=== PATIENT | female | born 1990 | race African-American/Black ===

== ENCOUNTER 2017-09-23 18:06 | Inpatient (IN) | payer OTHER ==
[2017-09-23] MEDS ORDERED: OXYTOCIN 30 UNIT/500 ML PREMIX 500 ML IV (18:30)
[2017-09-23] MEDS ORDERED: CITRIC ACID/SODIUM CITRATE 30 ML SOLUTION. PO (18:30)
[2017-09-23] MEDS ORDERED: ONDANSETRON PF 4 MG/2 ML VIAL. IV (18:30)
[2017-09-23] MEDS ORDERED: LIDOCAINE 1% PF 30 ML VIAL. INJ (18:30)
[2017-09-23] MEDS ORDERED: TERBUTALINE 1 MG/ML VIAL. SQ (18:30)
[2017-09-23] MEDS: IV RINGERS,LACTATED 1000ML 1,000 ML IV (19:30)
[2017-09-23 19:31] LABS: BILIRUBIN,URINE NEGATIVE (NEG); CLARITY,URINE CLEAR; COLOR,URINE YELLOW; GLUCOSE,URINE NEGATIVE (NEG); NITRITE,URINE NEGATIVE (NEG); PROTEIN,URINE NEGATIVE (NEG-TRACE); UROBILINOGEN,URINE 0.2 mg/dL (0.2 mg/dL)
[2017-09-23 19:38] LABS: BACTERIA,URINE MANY /HPF (0-FEW); RBC,URINE 0 /HPF (0-2); SQUAMOUS EPITHELIAL CELL,UR MANY /LPF
[2017-09-23] MEDS: DINOPROSTONE 10 MG SUPP.VAG VG (19:51)
[2017-09-23 21:01] LABS: HEMATOCRIT 39.8 % (36.0-47.0); HEMOGLOBIN 13.4 g/dL (12.0-15.5); MEAN CORPUSCULAR HEMOGLOBIN 33 pg (25-35); MEAN CORPUSCULAR HGB CONC 34 g/dL (31-37); MEAN CORPUSCULAR VOLUME 97 fL (79-100); PLATELET COUNT 159 x10^3/uL (140-400); RED BLOOD COUNT 4.12 x10^6/uL (3.50-5.40); RED CELL DISTRIBUTION WIDTH 13.7 % (11.5-14.5); WHITE BLOOD COUNT 6.6 x10^3/uL (4.0-11.0)
[2017-09-24] MEDS: ZOLPIDEM 5 MG TABLET. PO (02:19)
[2017-09-24] MEDS: IV RINGERS,LACTATED 1000ML 1,000 ML IV ×3 (05:00→20:50)
[2017-09-24] MEDS: 0.9 % SODIUM CHLORIDE 10 ML DISP.SYRIN. IV (05:00)
[2017-09-24] MEDS: BUTORPHANOL 2 MG/ML VIAL. IV ×2 (05:09→07:49)
[2017-09-24] MEDS: OXYTOCIN 30 UNIT/500 ML PREMIX 500 ML IV (06:03)
[2017-09-24] MEDS: fentaNYL PF VIAL 100 MCG/2 ML VIAL IV (09:48)
[2017-09-24] MEDS ORDERED: ROPIVacaine 0.2% IN 0.9%NACL PF 40 MG/20 ML DISP.SYRIN. ×2 (11:19→11:30)
[2017-09-24] MEDS ORDERED: L&D EPIDURAL 50 ML SYRINGE. EP (11:30)
[2017-09-24] MEDS ORDERED: L&D EPIDURAL SYRINGE 50 ML EP (11:33)
[2017-09-24] MEDS ORDERED: ceFAZolin 2GM PREMIX 2 GM/50 ML BAG IV (12:00)
[2017-09-24] MEDS: CITRIC ACID/SODIUM CITRATE 30 ML SOLUTION. PO (12:48)
[2017-09-24] MEDS ORDERED: MAG HYDROX/ALUMINUM HYD/SIMETH 30 ML ORAL.SUSP PO (13:00)
[2017-09-24] MEDS ORDERED: ZOLPIDEM 5 MG TABLET. PO (13:00)
[2017-09-24] MEDS ORDERED: 0.9 % SODIUM CHLORIDE 10 ML DISP.SYRIN. IV (13:00)
[2017-09-24] MEDS ORDERED: ONDANSETRON PF 4 MG/2 ML VIAL. IV (13:00)
[2017-09-24] MEDS ORDERED: diphenhydrAMINE ORAL ELIXIR 12.5 MG/5 ML ML PO (13:00)
[2017-09-24] MEDS ORDERED: MMR per PROTOCOL. MC (13:00)
[2017-09-24] MEDS ORDERED: MAGNESIUM HYDROXIDE 2,400 MG/30 ML ORAL.SUSP. PO (13:00)
[2017-09-24] MEDS ORDERED: OXYTOCIN 30 UNIT/500 ML PREMIX 500 ML IV (13:00)
[2017-09-24] MEDS ORDERED: SODIUM BICARB ADULT 8.4% 50 MEQ/50 ML DISP.SYRIN. (13:15)
[2017-09-24] MEDS ORDERED: LIDOCAINE 2% PF Vial for OR 5 ML VIAL. (13:15)
[2017-09-24] MEDS ORDERED: FAMOTIDINE 20 MG/2 ML VIAL (13:15)
[2017-09-24] MEDS ORDERED: ONDANSETRON PF 4 MG/2 ML VIAL. (13:15)
[2017-09-24] MEDS ORDERED: METOCLOPRAMIDE HCL 10 MG/2 ML VIAL. (13:15)
[2017-09-24] MEDS ORDERED: DEXAMETHASONE SOD PHOS 20 MG/5 ML VIAL. (13:15)
[2017-09-24] MEDS ORDERED: MORPHINE PF 5 MG/10 ML VIAL. (13:16)
[2017-09-24] MEDS ORDERED: OXYTOCIN 10 UNIT/ML VIAL. ×4 (13:32)
[2017-09-24] MEDS ORDERED: ceFAZolin SODIUM 1 GM in IV DEXTROSE 5% 50 ML IV (14:00)
[2017-09-24] MEDS: IBUPROFEN 800 MG TABLET. PO ×3 (14:00→23:30)
[2017-09-24] MEDS: KETOROLAC 30 MG/ML INJ. IV (16:59)
[2017-09-24] MEDS: FERROUS SULFATE 325 MG TABLET. PO (17:00)
[2017-09-24] MEDS: oxyCODONE/APAP 5/325 1 TAB TABLET PO ×2 (17:49→22:21)
[2017-09-24] MEDS: ceFAZolin SODIUM IV Push 1 GM VIAL. IVP (20:47)
[2017-09-24 23:15] LABS: RPR Non Reactive (Non Reactive)
[2017-09-25] MEDS: ceFAZolin SODIUM IV Push 1 GM VIAL. IVP ×2 (03:57→11:56)
[2017-09-25 04:26] LABS: ADD MAN DIFF? NO
[2017-09-25 04:38] LABS: BASO % 0 % (0-3); EOS % 0 % (0-3); HEMATOCRIT 33.9 % (36.0-47.0); HEMOGLOBIN 11.4 g/dL (12.0-15.5); LYMPH % 10 % (24-48); MEAN CORPUSCULAR HEMOGLOBIN 32 pg (25-35); MEAN CORPUSCULAR HGB CONC 34 g/dL (31-37); MEAN CORPUSCULAR VOLUME 95 fL (79-100); MONO % 9 % (0-9); NEUT # 8.3 x10^3uL (1.8-7.7); NEUT % 81 % (31-73); PLATELET COUNT 132 x10^3/uL (140-400); RED BLOOD COUNT 3.57 x10^6/uL (3.50-5.40); RED CELL DISTRIBUTION WIDTH 13.8 % (11.5-14.5); WHITE BLOOD COUNT 10.3 x10^3/uL (4.0-11.0)
[2017-09-25] MEDS: IBUPROFEN 800 MG TABLET. PO ×3 (06:37→20:32)
[2017-09-25] MEDS: oxyCODONE/APAP 5/325 1 TAB TABLET PO ×6 (06:39→23:18)
[2017-09-25] MEDS: FERROUS SULFATE 325 MG TABLET. PO ×2 (08:00→17:00)
[2017-09-25] MEDS: SIMETHICONE 80 MG TAB.CHEW PO ×2 (15:35→20:32)
[2017-09-25] MEDS: DOCUSATE SODIUM 100 MG CAPSULE. PO (20:32)
[2017-09-26] MEDS: oxyCODONE/APAP 5/325 1 TAB TABLET PO ×5 (04:36→20:45)
[2017-09-26] MEDS: IBUPROFEN 800 MG TABLET. PO ×3 (04:37→20:45)
[2017-09-26] MEDS: SIMETHICONE 80 MG TAB.CHEW PO (09:32)
[2017-09-26] MEDS: DOCUSATE SODIUM 100 MG CAPSULE. PO ×2 (09:32→20:45)
[2017-09-27] MEDS: IBUPROFEN 800 MG TABLET. PO ×2 (03:34→11:09)
[2017-09-27] MEDS: oxyCODONE/APAP 5/325 1 TAB TABLET PO ×3 (03:34→15:00)
[2017-09-27] MEDS: DOCUSATE SODIUM 100 MG CAPSULE. PO (07:41)
[2017-09-27] MEDS: SIMETHICONE 80 MG TAB.CHEW PO (07:44)
== END 2017-09-27 15:30 | disposition home or self-care (01) | DRG 765 ==
LOC: 3 SO LND 18:06 → 3 NORTH 09-24 17:16
PROC: 10D00Z1 Extraction of Products of Conception, Low, Open Approach (ICD-10-PCS; principal; 2017-09-24)
DX: O76 Abnormality in fetal heart rate and rhythm complicating labor and delivery (principal); O45.93 Premature separation of placenta, unspecified, third trimester; O61.9 Failed induction of labor, unspecified; Z37.0 Single live birth; Z3A.39 39 weeks gestation of pregnancy
CPT/HCPCS: 36415; 81001; 85025; 85027; 86593; 86850; 86900; 86901; 87086; 88307; J0690; J1100; J1885; J2270; J2405; J2590; J2765; J2795; J3010; J7120; S0028

== ENCOUNTER 2018-06-03 15:06 | Inpatient (IN) | payer OTHER ==
[~2018-06-03] VITALS: Ht 162.6 cm; Wt 60.3 kg
--- NOTE | 2018-06-03 15:41 | PHYS DOC ---
Past Medical History Past Medical History: Asthma Past Surgical History: No Surgical History Alcohol Use: None Drug Use: None Adult General Chief Complaint Chief Complaint: VAGINAL BLEEDING HPI HPI Patient is a 28 year old female presents to the ED complaining of vaginal bleeding over the last few weeks. States she has been following up with her ONCOLOGY ACCOUNT SPECIALIST (Aiden) but states the bleeding started coming out in clots this morning. Complains of lower abdominal cramping. Describes the pain as sharp/ cramping. Rates the pain as 8/10. Denies n/v, diarrhea, headache, vaginal discharge, STD exposure, dizziness, weakness, chest pain or shortness of breath. Review of Systems Review of Systems Constitutional: Denies fever or chills [] Eyes: Denies change in visual acuity, redness, or eye pain [] HENT: Denies nasal congestion or sore throat [] Respiratory: Denies cough or shortness of breath [] Cardiovascular: No additional information not addressed in HPI [] GI: Complains of abdominal pain. Denies nausea, vomiting, bloody stools or diarrhea [] : Complains of vaginal bleeding. Denies dysuria or hematuria [] Musculoskeletal: Denies back pain or joint pain [] Integument: Denies rash or skin lesions [] Neurologic: Denies headache, focal weakness or sensory changes [] All other systems were reviewed and found to be within normal limits, except as documented in this note. Current Medications Current Medications Current Medications Medications (Trade) Dose Ordered Sig/Brien Start Time Stop Time Status Last Admin Dose Admin Acetaminophen (Tylenol) 650 mg PRN Q4HRS PRN 06/03/18 19:00 06/04/18 13:19 DC Fentanyl Citrate (Fentanyl 2ml Vial) 50 mcg PRN Q1HR PRN 06/03/18 19:00 06/04/18 13:19 DC Methylergonovine Maleate (Methergine) 0.2 mg 1X ONCE 06/03/18 17:45 06/03/18 17:47 DC 06/03/18 18:19 0.2 MG Morphine Sulfate (Morphine Sulfate) 2 mg 1X ONCE 06/03/18 19:00 06/03/18 19:01 DC 06/03/18 19:00 2 MG Ondansetron HCl (Zofran Odt) 4 mg 1X ONCE 9/24/18 16:00 06/03/18 16:01 DC Ondansetron HCl (Zofran) 4 mg PRN Q8HRS PRN 06/03/18 19:00 06/04/18 13:19 DC Sodium Chloride 1,000 ml @ 1,000 mls/hr 1X ONCE 06/03/18 19:00 06/03/18 19:59 DC 06/03/18 19:05 1,000 MLS/HR Allergies Allergies Allergies Coded Allergies Type Severity Reaction Last Updated Verified No Known Drug Allergies 09/25/14 No Physical Exam Physical Exam Constitutional: Well developed, well nourished, no acute distress, non-toxic appearance. [] HENT: Normocephalic, atraumatic, bilateral external ears normal, oropharynx moist, no oral exudates, nose normal. [] Eyes: PERRLA, EOMI, conjunctiva normal, no discharge. [] Neck: Normal range of motion, no tenderness, supple, no stridor. [] Cardiovascular:Heart rate regular rhythm, no murmur [] Lungs & Thorax: Bilateral breath sounds clear to auscultation [] Abdomen: Bowel sounds normal, soft, diffuse lower abdominal tenderness, no masses, no pulsatile masses. [] : Refused. Skin: Warm, dry, no erythema, no rash. [] Back: No tenderness, no CVA tenderness. [] Extremities: No tenderness, no cyanosis, no clubbing, ROM intact, no edema. [] Neurologic: Alert and oriented X 3, normal motor function, normal sensory function, no focal deficits noted. [] Psychologic: Affect normal, judgement normal, mood normal. [] Current Patient Data Vital Signs Vital Signs Date Time Temp Pulse Resp B/P (MAP) Pulse Ox O2 Delivery O2 Flow Rate FiO2 06/03/18 19:50 88 116/70 (85) 98 Room Air 06/03/18 15:36 98.0 16 98.0 Lab Values Laboratory Tests Test 06/03/18 15:30 06/03/18 15:35 06/03/18 15:38 Urine Collection Type Unknown Urine Color Yellow Urine Clarity Clear Urine pH 6.5 Urine Specific [place] 1.025 Urine Protein Negative mg/dL (NEG-TRACE) Urine Glucose (UA) Negative mg/dL (NEG) Urine Ketones (Stick) Negative mg/dL (NEG) Urine Blood Trace (NEG) Urine Nitrite Negative (NEG) Urine Bilirubin Negative (NEG) Urine Urobilinogen Dipstick 1.0 mg/dL (0.2 mg/dL) Urine Leukocyte Esterase Negative (NEG) Urine RBC 1-2 /HPF (0-2) Urine WBC 0 /HPF (0-4) Urine Squamous Epithelial Cells Few /LPF Urine Bacteria Few /HPF (0-FEW) Urine Mucus Marked /LPF POC Urine HCG, Qualitative Hcg positive (Negative) White Blood Count 7.2 x10^3/uL (4.0-11.0) Red Blood Count 4.19 x10^6/uL (3.50-5.40) Hemoglobin 13.0 g/dL (12.0-15.5) Hematocrit 37.6 % (36.0-47.0) Mean Corpuscular Volume 90 fL (79-100) Mean Corpuscular Hemoglobin 31 pg (25-35) Mean Corpuscular Hemoglobin Concent 35 g/dL (31-37) Red Cell Distribution Width 14.7 % (11.5-14.5) H Platelet Count 258 x10^3/uL (140-400) Neutrophils (%) (Auto) 67 % (31-73) Lymphocytes (%) (Auto) 24 % (24-48) Monocytes (%) (Auto) 7 % (0-9) Eosinophils (%) (Auto) 1 % (0-3) Basophils (%) (Auto) 0 % (0-3) Neutrophils # (Auto) 4.8 x10^3uL (1.8-7.7) Lymphocytes # (Auto) 1.8 x10^3/uL (1.0-4.8) Monocytes # (Auto) 0.5 x10^3/uL (0.0-1.1) Eosinophils # (Auto) 0.1 x10^3/uL (0.0-0.7) Basophils # (Auto) 0.0 x10^3/uL (0.0-0.2) Maternal Serum HCG Beta Subunit 25400 mIU/mL (0-5) H Sodium Level 137 mmol/L (136-145) Potassium Level 3.8 mmol/L (3.5-5.1) Chloride Level 102 mmol/L (98-107) Carbon Dioxide Level 24 mmol/L (21-32) Anion Gap 11 (6-14) Blood Urea Nitrogen 7 mg/dL (7-20) Creatinine 0.6 mg/dL (0.6-1.0) Estimated GFR (Cockcroft-Gault) 146.2 BUN/Creatinine Ratio 12 (6-20) Glucose Level 103 mg/dL (70-99) H Calcium Level 9.0 mg/dL (8.5-10.1) Total Bilirubin 0.4 mg/dL (0.2-1.0) Aspartate Amino Transferase (AST) 20 U/L (15-37) Alanine Aminotransferase (ALT) 21 U/L (14-59) Alkaline Phosphatase 51 U/L (46-116) Total Protein 7.6 g/dL (6.4-8.2) Albumin 3.3 g/dL (3.4-5.0) L Albumin/Globulin Ratio 0.8 (1.0-1.7) L Laboratory Tests 06/03/18 15:38 Laboratory Tests 06/03/18 15:38 EKG EKG [] Radiology/Procedures Radiology/Procedures PROCEDURE: OB <14 WKS W/TV Obstetrical ultrasound, 06/03/2018: HISTORY: , vaginal bleeding Transabdominal and transvaginal scans were obtained. The uterus is enlarged. It contains a single gestational sac. The gestational sac contains a pole. It demonstrates a crown-rump length of 5.8 cm compatible with a gestational age of 12-13 weeks. The endocervical canal is dilated with the inferior aspect of the fetus extending into the endocervical canal. Initially with transabdominal scanning, faint heart motion was detected. At the end of the exam with transvaginal scanning there was no heart motion evident. The findings are those of demise with a spontaneous in progress. The ovaries were not visualized. No free fluid is evident in the pelvis. IMPRESSION: Nonviable 12 week IUP. []PROCEDURE: PREG 1ST TRIMESTER Exam performed: OB sonogram first semester. HISTORY: Patient had a OB ultrasound at 4:30 PM and facet the changes. This is a follow-up exam. DATE OF SERVICE: 05/31/2018 at 6:24 PM. Comparison made to a OB ultrasound from earlier today at 3:45 PM. TECHNIQUE: Transabdominal. The patient refused transvaginal scanning. FINDINGS: The uterus measures 14.0 x 8.8 x 7.1 cm. The endometrial stripe is thickened at approximately measures 30.8 mm. Previously seen intrauterine gestational sac containing a pole is no longer visualized corresponding to the given history.. There is normal vascularity and thickened endometrial stripe. The right ovary is not clearly seen. The left ovary measures 2.1 x 1.5 x 1.5 cm. No solid or cystic mass lesion is identified. No free fluid. IMPRESSION: Previously seen gestational sac and pole are no longer visualized consistent with a history of passing fetus. Thickened endometrial stripe without definite vascularity. Retained products is not considered likely, however short-term interval follow-up ultrasound and follow-up serial beta-hCG levels may be obtained Course & Med Decision Making Course & Med Decision Making Pertinent Labs and Imaging studies reviewed. (See chart for details) []Discussed case with Dr. Wolfe. Requests repeat US and to give Methergine. Repeat US shows No placenta or fetus. Patient passed fetus and POC in the room. Discussed findings with Dr. Wolfe. Will admit and further manage patient. Patients pain controlled at this time. Not passing clots. Requests methergine TID and analgesics for her pain. Patient stable for admission. Staff Physician Addendum: I was working in the ER during the course of this patient's visit. I was available for consultation as needed, but I was not directly involved in the care of this patient. Dragon Disclaimer Dragon Disclaimer This electronic medical record was generated, in whole or in part, using a voice recognition dictation system. Departure Departure Impression: Primary Impression: Complete miscarriage Disposition: ADMITTED INPATIENT Admitting Physician: Other (AIDEN) Condition: STABLE Referrals: HALEY WOLFE MD (PCP) BRISSA ANGEL Jun 03, 2018 15:41 BORIS CASSIDY MD Jun 05, 2018 06:28
[2018-06-03] MEDS ORDERED: ACETAMINOPHEN 325 MG TABLET. PO ONE (15:45)
[2018-06-03] MEDS ORDERED: ONDANSETRON PF 4 MG/2 ML VIAL. IV ONE ×2 (15:45→16:15)
[2018-06-03 15:55] LABS: BASO % 0 % (0-3); EOS # 0.1 x10^3/uL (0.0-0.7); EOS % 1 % (0-3); HEMATOCRIT 37.6 % (36.0-47.0); LYMPH # 1.8 x10^3/uL (1.0-4.8); LYMPH % 24 % (24-48); MEAN CORPUSCULAR HEMOGLOBIN 31 pg (25-35); MEAN CORPUSCULAR HGB CONC 35 g/dL (31-37); MEAN CORPUSCULAR VOLUME 90 fL (79-100); MONO # 0.5 x10^3/uL (0.0-1.1); MONO % 7 % (0-9); NEUT # 4.8 x10^3uL (1.8-7.7); NEUT % 67 % (31-73); PLATELET COUNT 258 x10^3/uL (140-400); RED BLOOD COUNT 4.19 x10^6/uL (3.50-5.40); RED CELL DISTRIBUTION WIDTH 14.7 % (11.5-14.5); WHITE BLOOD COUNT 7.2 x10^3/uL (4.0-11.0)
[2018-06-03] MEDS ORDERED: ONDANSETRON ODT 4 MG TAB.RAPDIS. PO ONE (16:00)
[2018-06-03 16:02] LABS: BILIRUBIN,URINE NEGATIVE (NEG); CLARITY,URINE CLEAR; COLOR,URINE YELLOW; NITRITE,URINE NEGATIVE (NEG); PH,URINE 6.5; PROTEIN,URINE NEGATIVE (NEG-TRACE)
[2018-06-03 16:05] LABS: CREATININE 0.6 mg/dL (0.6-1.0); GFR 146.2; POTASSIUM 3.8 mmol/L (3.5-5.1)
[2018-06-03 16:11] LABS: ALBUMIN 3.3 g/dL (3.4-5.0); ALBUMIN/GLOBULIN RATIO 0.8 (1.0-1.7); TOTAL BILIRUBIN 0.4 mg/dL (0.2-1.0); TOTAL PROTEIN 7.6 g/dL (6.4-8.2)
[2018-06-03 16:15] LABS: BACTERIA,URINE FEW /HPF (0-FEW); SQUAMOUS EPITHELIAL CELL,UR FEW /LPF; WBC,URINE 0 /HPF (0-4)
[2018-06-03] MEDS ORDERED: MORPHINE SULFATE 4 MG/ML VIAL. IV ONE (16:15)
--- NOTE | 2018-06-03 16:36 | RAD ---
Obstetrical ultrasound, 06/03/2018: HISTORY: , vaginal bleeding Transabdominal and transvaginal scans were obtained. The uterus is enlarged. It contains a single gestational sac. The gestational sac contains a pole. It demonstrates a crown-rump length of 5.8 cm compatible with a gestational age of 12-13 weeks. The endocervical canal is dilated with the inferior aspect of the fetus extending into the endocervical canal. Initially with transabdominal scanning, faint heart motion was detected. At the end of the exam with transvaginal scanning there was no heart motion evident. The findings are those of demise with a spontaneous in progress. The ovaries were not visualized. No free fluid is evident in the pelvis. IMPRESSION: Nonviable 12 week IUP. Electronically signed by: Marcus Thompson MD (06/03/2018 4:32 PM) [facility]
[2018-06-03] MEDS ORDERED: METHYLERGONOVINE MALEATE 0.2 MG/ML VIAL. IM ONE (17:45)
[2018-06-03] MEDS ORDERED: MORPHINE SULFATE 2 MG/ML VIAL. ONE (17:56)
[2018-06-03] MEDS ORDERED: MORPHINE SULFATE 2 MG/ML VIAL. IV ONE ×2 (18:00→19:00)
[2018-06-03] MEDS ORDERED: fentaNYL PF VIAL 100 MCG/2 ML VIAL IV PRN (19:00)
[2018-06-03] MEDS ORDERED: IV NORMAL SALINE 1000ML BAG 1,000 ML IV ONE (19:00)
[2018-06-03] MEDS ORDERED: ONDANSETRON PF 4 MG/2 ML VIAL. IV PRN (19:00)
[2018-06-03] MEDS ORDERED: ACETAMINOPHEN 325 MG TABLET. PO PRN (19:00)
--- NOTE | 2018-06-03 19:11 | RAD ---
Exam performed: OB sonogram first semester. HISTORY: Patient had a OB ultrasound at 4:30 PM and facet the changes. This is a follow-up exam. DATE OF SERVICE: 05/31/2018 at 6:24 PM. Comparison made to a OB ultrasound from earlier today at 3:45 PM. TECHNIQUE: Transabdominal. The patient refused transvaginal scanning. FINDINGS: The uterus measures 14.0 x 8.8 x 7.1 cm. The endometrial stripe is thickened at approximately measures 30.8 mm. Previously seen intrauterine gestational sac containing a pole is no longer visualized corresponding to the given history.. There is normal vascularity and thickened endometrial stripe. The right ovary is not clearly seen. The left ovary measures 2.1 x 1.5 x 1.5 cm. No solid or cystic mass lesion is identified. No free fluid. IMPRESSION: Previously seen gestational sac and pole are no longer visualized consistent with a history of passing fetus. Thickened endometrial stripe without definite vascularity. Retained products is not considered likely, however short-term interval follow-up ultrasound and follow-up serial beta-hCG levels may be obtained Electronically signed by: Toyin Beebe MD (06/03/2018 7:07 PM) [facility]
[2018-06-03] MEDS: METHYLERGONOVINE MALEATE 0.2 MG/ML VIAL. IM SCH (21:00)
[2018-06-03 21:10] VITALS: BP 128/83
[2018-06-04] MEDS: diphenhydrAMINE ORAL ELIXIR 12.5 MG/5 ML ML PO PRN ×2 (00:52→09:28)
[2018-06-04 01:35] VITALS: BP 103/67
[2018-06-04 05:30] VITALS: BP 93/55
[2018-06-04 05:54] LABS: BASO % 0 % (0-3); EOS # 0.1 x10^3/uL (0.0-0.7); EOS % 1 % (0-3); HEMATOCRIT 33.9 % (36.0-47.0); HEMOGLOBIN 11.8 g/dL (12.0-15.5); LYMPH # 2.3 x10^3/uL (1.0-4.8); LYMPH % 25 % (24-48); MEAN CORPUSCULAR HEMOGLOBIN 31 pg (25-35); MEAN CORPUSCULAR HGB CONC 35 g/dL (31-37); MEAN CORPUSCULAR VOLUME 90 fL (79-100); MONO # 0.5 x10^3/uL (0.0-1.1); MONO % 6 % (0-9); NEUT # 6.2 x10^3uL (1.8-7.7); NEUT % 68 % (31-73); PLATELET COUNT 235 x10^3/uL (140-400); RED BLOOD COUNT 3.76 x10^6/uL (3.50-5.40); RED CELL DISTRIBUTION WIDTH 14.9 % (11.5-14.5); WHITE BLOOD COUNT 9.2 x10^3/uL (4.0-11.0)
[2018-06-04 06:14] LABS: CALCIUM 9.1 mg/dL (8.5-10.1); CREATININE 0.5 mg/dL (0.6-1.0); GFR 180.5; POTASSIUM 3.5 mmol/L (3.5-5.1)
[2018-06-04] MEDS: METHYLERGONOVINE MALEATE 0.2 MG/ML VIAL. IM SCH (09:00)
[2018-06-04] MEDS ORDERED: IBUP200T44 PO ×2 (10:21→10:23)
[2018-06-04 11:00] VITALS: BP 104/61
== END 2018-06-04 11:00 | disposition home or self-care (01) | DRG 779 ==
LOC: ER 15:06 → 3 NORTH 20:19
PROVIDERS: ADMIT Specialist; ATTEND Specialist
DX: O03.9 Complete or unspecified spontaneous abortion without complication (principal); O99.511 Diseases of the respiratory system complicating pregnancy, first trimester; J45.909 Unspecified asthma, uncomplicated; Z3A.12 12 weeks gestation of pregnancy
CPT/HCPCS: 36415; 76801; 76817; 80048; 80053; 81001; 81025; 84702; 85025; 96361; 96372; 96374; J2210; J2270; J2405; J7030; 99285-25

== ENCOUNTER 2018-06-06 16:14 | Observation (INO) | payer OTHER ==
[~2018-06-06] VITALS: Ht 162.6 cm; Wt 58.5 kg
[~2018-06-06 16:14] MED LIST: IBUP200T44 PO
[2018-06-06] MEDS ORDERED: IV RINGERS,LACTATED 1000ML 1,000 ML IV SCH ×2 (16:45→17:03)
[2018-06-06] MEDS ORDERED: ONDANSETRON PF 4 MG/2 ML VIAL. ONE (17:07)
[2018-06-06] MEDS ORDERED: SEVOFLURANE UP TO 15 MINUTES. IH ONE (17:07)
[2018-06-06] MEDS ORDERED: PROPOFOL 20 ML IV ONE (17:07)
[2018-06-06] MEDS ORDERED: KETOROLAC 30 MG/ML INJ FOR OR. INJ ONE (17:07)
[2018-06-06] MEDS ORDERED: DEXAMETHASONE SOD PHOS 20 MG/5 ML VIAL. ONE (17:07)
[2018-06-06] MEDS ORDERED: MORPHINE SULFATE 2 MG/ML VIAL. IV PRN (17:15)
[2018-06-06] MEDS ORDERED: PROCHLORPERAZINE 10 MG/2 ML VIAL. IV PRN (17:15)
[2018-06-06] MEDS ORDERED: HYDROmorphone 2 MG/ML VIAL IV PRN (17:15)
[2018-06-06] MEDS ORDERED: fentaNYL PF VIAL 100 MCG/2 ML VIAL IV PRN ×2 (17:15)
[2018-06-06] MEDS ORDERED: ONDANSETRON PF 4 MG/2 ML VIAL. IV PRN ×2 (17:15→17:45)
[2018-06-06] MEDS ORDERED: LIDOCAINE 1% PF 2 ML VIAL. ID PRN (17:15)
[2018-06-06] MEDS ORDERED: OXYTOCIN 10 UNIT/ML VIAL. ONE (17:33)
[2018-06-06] MEDS ORDERED: ceFAZolin SODIUM 1 GM VIAL ONE (17:33)
[2018-06-06] MEDS ORDERED: oxyCODONE/APAP 5/325 1 TAB TABLET PO PRN ×2 (17:45)
[2018-06-06] MEDS ORDERED: METOCLOPRAMIDE HCL 10 MG/2 ML VIAL. IV PRN (17:45)
[2018-06-06] MEDS ORDERED: DEXTROSE 50% 25 GM / 50ML DISP.SYRIN. IV PRN (17:45)
[2018-06-06] MEDS ORDERED: MAG HYDROX/ALUMINUM HYD/SIMETH 30 ML ORAL.SUSP PO PRN (17:45)
[2018-06-06] MEDS ORDERED: 0.9 % SODIUM CHLORIDE 10 ML DISP.SYRIN. IV PRN (17:45)
[2018-06-06] MEDS ORDERED: diphenhydrAMINE HCL 25 MG CAPSULE PO PRN (17:45)
[2018-06-06] MEDS ORDERED: fentaNYL PF VIAL 100 MCG/2 ML VIAL ONE (17:53)
[2018-06-06] MEDS ORDERED: CLINDAMYCIN 900MG PREMIX 50 ML IV SCH ×2 (18:00→23:00)
--- NOTE | 2018-06-06 18:06 | OP ---
DATE OF SURGERY: 06/06/2018 PREOPERATIVE DIAGNOSIS: Incomplete . POSTOPERATIVE DIAGNOSES: 1. Incomplete . 2. Endometritis. PROCEDURE: Suction D and C. SURGEON: Rj Wolfe M.D. FLEXO FOLDER GLUER OPERATOR: None. ANESTHESIA: General. ESTIMATED BLOOD LOSS: 100 mL. FLUIDS: Crystalloids. FINDINGS: Approximately a 40-week size uterus, boggy with foul smelling discharge. SPECIMENS: Products of conception. COMPLICATIONS: None. CONDITION: Stable. DESCRIPTION OF PROCEDURE: Risks, benefits, indications, alternatives discussed in detail with the patient. The patient was brought to the OR theater, [facility] Under adequate general anesthesia, the patient prepped and draped in usual sterile manner. Posterior weighted speculum was placed in the vaginal vault. Cervix was grasped with single tooth tenaculum. Cervix was dilated using Zaragoza dilators to receive a #12 curved suction cannula. Gentle suction curettage was performed in all quadrants. A foul smelling discharge odor was noted. The suction curettage was done general until no further products of conception were seen going through the clear tubing. Sharp curettage was then performed in all quadrants. The uterine cry was heard. The suction cannula was once again placed. No further products of conception was noted and procedure was terminated. Single tooth tenaculum was removed. Puncture sites were hemostatic. Vaginal vault was wiped clean any membrane or tissue secondary to the foul smelling discharge, it was felt the patient should have overnight stay and was admitted for observation with IV antibiotics. RJ WOLFE MD DR: KACEY/dain JOB#: [id number] / [id number]
[2018-06-06 18:30] VITALS: BP 120/79
[2018-06-06 18:45] VITALS: BP 116/84
[2018-06-06 19:00] VITALS: BP 125/85
[2018-06-06 19:15] VITALS: BP 124/82
[2018-06-06 19:45] VITALS: BP 112/66
--- NOTE | 2018-06-10 16:10 | PATHOLOGY ---
[facility] Accession Number: [id number] . 01 Material submitted: . PRODUCTS OF CONCEPTION . 01 Clinician provided ICD-10: O02.1 . 01 Clinical history: . Missed . 02 Diagnosis: Uterine contents, suction D and C: - Products of conception, comprised of few immature chorionic villi and predominant segments of decidual tissue showing extensive hemorrhage, necrosis, and acute inflammation. . (JPM:mml; 06/10/18) [facility]/06/10/2018 . 02 Electronically signed: . Herb Julio MD, Pathologist NPI- [id number] . 01 Gross description: . The specimen is received in formalin, labeled "Sarah Middleton, products of conception", are multiple irregular fragments of dark brown clot measuring 8.0 x 5.0 x 1.7 cm in aggregate. No discrete spongy placental tissue, parts or grapelike cystic structures are present. Lofter tissue is submitted in A1-A3. ([facility]; 06/07/2018) [facility] . 02 Pathologist provided ICD-10: O02.1, O02.89 . 02 CPT . 338529 Specimen Comment: A courtesy copy of this report has been sent to Specimen Comment: [phone]. Specimen Comment: Report sent to Performed at: [facility] [address], [place] [id number] MD Gael Romero MD Phone: [phone] Performed at: [facility] [address] [place], [place] [id number] MD Herb Julio MD Phone: [phone]
== END 2018-06-06 20:45 | disposition home or self-care (01) ==
LOC: SURG 16:14 → 3 NORTH 18:21
PROVIDERS: ADMIT Specialist; ATTEND Specialist
DX: O03.4 Incomplete spontaneous abortion without complication (principal)
CPT/HCPCS: 59812; C1892; G0378; G0379; J0690; J1100; J1885; J2405; J2590; J2704; J3010; J3490; 88305

== ENCOUNTER 2020-01-19 18:55 | Emergency (ER) | payer OTHER ==
[~2020-01-19] VITALS: Ht 162.6 cm; Wt 63.6 kg
[2020-01-19] MEDS ORDERED: ONDANSETRON ODT 4 MG TAB.RAPDIS. PO ONE (19:15)
--- NOTE | 2020-01-19 19:16 | PHYS DOC ---
Past Medical History Past Medical History: Asthma Past Surgical History: No Surgical History, Smoking Status: Never Smoker Alcohol Use: None Drug Use: None General Adult EDM: Chief Complaint: ABDOMINAL PAIN IN HPI: HPI: Patient is a 29 year old female who presents with patient cannot remember when her last period was but she took 3 test in October and they were all positive. Patient was seen in Dr. Wolfe for OB but he is no longer practicing. Patient states she has not seen OB since. States yesterday she began having a lot of pressure in the low mid abdomen and some brown discharge with some nausea and vomiting. Patient denies fever, vaginal bleeding, chest pain, shortness of air, back pain, headache, dizziness, vision changes, numbness or tingling. She rates her pressure discomfort a 6 out of 10. She refuses any Tylenol but states that she will take some nausea medicine. Review of Systems: Review of Systems: GI: low abdominal pressure, nausea, vomiting, denies bloody stools or diarrhea. [] Heart Score: Risk Factors: Risk Factors: DM, Current or recent (<one month) smoker, HTN, HLP, family history of CAD, obesity. Risk Scores: Score 0 - 3: 2.5% MACE over next 6 weeks - Discharge Home Score 4 - 6: 20.3% MACE over next 6 weeks - Admit for Clinical Observation Score 7 - 10: 72.7% MACE over next 6 weeks - Early Invasive Strategies Allergies: Allergies: Allergies Coded Allergies Type Severity Reaction Last Updated Verified No Known Drug Allergies 06/06/18 No Physical Exam: PE: Constitutional: Well developed, well nourished, no acute distress, non-toxic appearance. [] HENT: Normocephalic, atraumatic, bilateral external ears normal, oropharynx moist, no oral exudates, nose normal. [] Eyes: PERRLA, EOMI, conjunctiva normal, no discharge. [] Neck: Normal range of motion, no tenderness, supple, no stridor. [] Cardiovascular:Heart rate regular rhythm, no murmur [] Lungs & Thorax: Bilateral breath sounds clear to auscultation [] Abdomen: Bowel sounds normal, soft, no tenderness, no masses, no pulsatile masses. [] Skin: Warm, dry, no erythema, no rash. [] Back: No tenderness, no CVA tenderness. [] Extremities: No tenderness, no cyanosis, no clubbing, ROM intact, no edema. [] Neurologic: Alert and oriented X 3, normal motor function, normal sensory function, no focal deficits noted. [] Psychologic: Affect normal, judgement normal, mood normal. Normal Physical Exam [] EKG: EKG: [] Radiology/Procedures: Radiology/Procedures: [] Impression: [facility] [address] [place] [address] IMAGING REPORT Signed PATIENT: ALEJANDRO AGUSTIN MACCOUNT: [id number] : 1990 LOCATION: ER AGE: 29 SEX: F EXAM STATUS: REG ER ORD. PHYSICIAN: SEJAL OSEGUERA APRN REASON: ABDOMINAL PAIN IN PROCEDURE: OB < 14 WKS Obstetric ultrasound less than 14 weeks HISTORY: Abdominal pain and . TECHNIQUE: Transabdominal transducer was utilized. FINDINGS: Uterus measures 11.1 x 8.3 x 2.8 cm. There is a single intrauterine gestational sac with a normal shape and normal volume of amniotic fluid. There is a single pole crown-rump length 1.4 cm with estimated sonographic gestational age of 7 weeks 5 days and date of delivery September 01, 2020. cardiac activity with heart rate of 158 bpm documented. Yolk sac diameter 5 mm. No subchorionic hemorrhage. Maternal cervix is subjectively normal, the length was not documented. Right ovary measures 3.3 x 2.4 x 3.0 cm with a corpus luteum. Left ovary measures 3.1 x 1.7 x 2.3 cm. There is intact bilateral ovarian blood flow. No pelvic fluid. IMPRESSION: Single living intrauterine with estimated sonographic gestational age of 7 weeks 5 days as described above. Electronically signed by: Ed Kay MD (01/19/2020 8:03 PM) [facility] DICTATED and SIGNED BY: ED KAY MD DATE: 01/19/202002 Course & Med Decision Making: Course & Med Decision Making Pertinent Labs and Imaging studies reviewed. (See chart for details) Abdomen soft and nontender. Alert and oriented. Speaks in full clear sentences. Ambulatory to steady gait. No extremity swelling. Skin pink warm and dry. Vital signs within normal limits. Patient states she does not want to be treated prophylactically today for sexually transmitted diseases. She states she will wait the 48 hours to see if she comes back positive. Patient's urine shows no infection but shows that she is dehydrated. She will get a liter of fluids in the ED. I will send her home with a referral to Dr. Hidalgo and [facility]. Pelvic Exam: Magnetic Grinder Operator present Abdomen: Nontender External Genitalia: Normal Skin Speculum: Normal vaginal mucosa, white cervical discharge Bimanual: No adnexal masses or tenderness, No CMT [] Dragon Disclaimer: Dragon Disclaimer: This electronic medical record was generated, in whole or in part, using a voice recognition dictation system. Departure Departure Impression: Primary Impression: Abdominal pain affecting Additional Impressions: Nausea and vomiting during Bacterial vaginosis in Disposition: HOME, SELF-CARE Condition: STABLE Referrals: NO PCP (PCP) Patient Instructions: Abdominal Pain During , Bacterial Vaginosis, [id number] Additional Instructions: Begin taking vitamins with food. Drink plenty of fluids. Take medications only as prescribed. Follow-up with Dr Hidalgo as soon as possible. Scripts Metronidazole (METRONIDAZOLE) 500 Mg Tablet 1 TAB PO BID for 7 Days, #14 TAB 0 Refills Prov: SEJAL OSEGUERA APRN 01/19/20 Ondansetron (ONDANSETRON ODT) 4 Mg Tab.rapdis 1 TAB PO PRN Q6-8HRS, #20 TAB Prov: SEJAL OSEGUERA APRN 01/19/20 SEJAL OSEGUERA APRN January 19, 2020 19:16
[2020-01-19 19:19] LABS: CLARITY,URINE CLEAR
[2020-01-19 19:20] LABS: BILIRUBIN,URINE NEGATIVE (NEG); COLOR,URINE YELLOW; NITRITE,URINE NEGATIVE (NEG); PROTEIN,URINE NEGATIVE (NEG-TRACE); UROBILINOGEN,URINE 0.2 mg/dL (0.2 mg/dL)
[2020-01-19 19:23] LABS: BACTERIA,URINE FEW /HPF (0-FEW); RBC,URINE 0 /HPF (0-2); SQUAMOUS EPITHELIAL CELL,UR MOD /LPF; WBC,URINE OCC /HPF (0-4)
[2020-01-19 19:35] LABS: BASO % 0 % (0-3); EOS # 0.1 x10^3/uL (0.0-0.7); EOS % 2 % (0-3); HEMATOCRIT 38.6 % (36.0-47.0); HEMOGLOBIN 12.8 g/dL (12.0-15.5); LYMPH # 1.8 x10^3/uL (1.0-4.8); LYMPH % 34 % (24-48); MEAN CORPUSCULAR HEMOGLOBIN 28 pg (25-35); MEAN CORPUSCULAR HGB CONC 33 g/dL (31-37); MEAN CORPUSCULAR VOLUME 85 fL (79-100); MONO # 0.4 x10^3/uL (0.0-1.1); MONO % 7 % (0-9); NEUT # 2.9 x10^3/uL (1.8-7.7); NEUT % 57 % (31-73); PLATELET COUNT 261 x10^3/uL (140-400); RED BLOOD COUNT 4.52 x10^6/uL (3.50-5.40); RED CELL DISTRIBUTION WIDTH 17.6 % (11.5-14.5); WHITE BLOOD COUNT 5.2 x10^3/uL (4.0-11.0)
[2020-01-19 19:41] LABS: CALCIUM 9.2 mg/dL (8.5-10.1); CREATININE 0.7 mg/dL (0.6-1.0); GFR 121.5; POTASSIUM 3.3 mmol/L (3.5-5.1)
[2020-01-19 19:46] LABS: ALBUMIN 3.7 g/dL (3.4-5.0); ALBUMIN/GLOBULIN RATIO 0.9 (1.0-1.7); TOTAL BILIRUBIN 0.3 mg/dL (0.2-1.0); TOTAL PROTEIN 7.7 g/dL (6.4-8.2)
[2020-01-19] MEDS ORDERED: IV NORMAL SALINE 1000ML BAG 1,000 ML IV ONE (20:00)
--- NOTE | 2020-01-19 20:06 | RAD ---
Obstetric ultrasound less than 14 weeks HISTORY: Abdominal pain and . TECHNIQUE: Transabdominal transducer was utilized. FINDINGS: Uterus measures 11.1 x 8.3 x 2.8 cm. There is a single intrauterine gestational sac with a normal shape and normal volume of amniotic fluid. There is a single pole crown-rump length 1.4 cm with estimated sonographic gestational age of 7 weeks 5 days and date of delivery September 01, 2020. cardiac activity with heart rate of 158 bpm documented. Yolk sac diameter 5 mm. No subchorionic hemorrhage. Maternal cervix is subjectively normal, the length was not documented. Right ovary measures 3.3 x 2.4 x 3.0 cm with a corpus luteum. Left ovary measures 3.1 x 1.7 x 2.3 cm. There is intact bilateral ovarian blood flow. No pelvic fluid. IMPRESSION: Single living intrauterine with estimated sonographic gestational age of 7 weeks 5 days as described above. Electronically signed by: Ed Kay MD (01/19/2020 8:03 PM) [facility]
[2020-01-19] MEDS ORDERED: ONDA4TAB12 PO (20:18)
[2020-01-19] MEDS ORDERED: METR-34 PO (20:24)
[2020-01-19 21:00] VITALS: BP 108/69
[2020-01-21 16:10] LABS: GC PROBE Negative (Negative)
== END 2020-01-19 21:21 | disposition home or self-care (01) ==
LOC: ER 18:55
DX: O23.591 Infection of other part of genital tract in pregnancy, first trimester (principal); O21.9 Vomiting of pregnancy, unspecified; R10.30 Lower abdominal pain, unspecified; J45.909 Unspecified asthma, uncomplicated; Z98.890 Other specified postprocedural states; Z3A.01 Less than 8 weeks gestation of pregnancy
CPT/HCPCS: 36415; 76801; 80053; 81001; 81025; 83690; 84702; 85025; 87491; 87591; 96360; 99284; J7030; Q0111; Q0162

== ENCOUNTER 2020-03-08 23:58 | Emergency (ER) | payer OTHER ==
[~2020-03-08] VITALS: Ht 162.6 cm; Wt 62.7 kg
[~2020-03-08 23:58] MED LIST changes: +METR-34 PO; +ONDA4TAB12 PO
--- NOTE | 2020-03-09 01:19 | PHYS DOC ---
Past Medical History Past Medical History: No Pertinent History, Asthma Past Surgical History: No Surgical History, , Other Additional Past Surgical Histo: DNC(2018) Smoking Status: Never Smoker Alcohol Use: None Drug Use: None General Adult EDM: Chief Complaint: MECHANICAL FALL HPI: HPI: Patient is a 29 year old female who is 14 weeks presents for evaluation after slip and fall downstairs. Patient complains of left shoulder pain left rib pain and lower pelvic pain. Patient denies hitting her head there is no loss of consciousness. Patient has not had any nausea or vomiting. Patient denies any vaginal bleeding or vaginal discharge. heart tones obtained 160 bpm. Review of Systems: Review of Systems: Constitutional: Denies fever or chills. [] Eyes: Denies change in visual acuity. [] HENT: Denies nasal congestion or sore throat. [] Respiratory: Denies cough or shortness of breath. [] Cardiovascular: Denies chest pain or edema. [] GI: Denies abdominal pain, nausea, vomiting, bloody stools or diarrhea. [] : Denies dysuria. [] Musculoskeletal: Denies back pain or joint pain. [] Integument: Denies rash. [] Neurologic: Denies headache, focal weakness or sensory changes. [] Endocrine: Denies polyuria or polydipsia. [] Lymphatic: Denies swollen glands. [] Psychiatric: Denies depression or anxiety. [] Heart Score: Risk Factors: Risk Factors: DM, Current or recent (<one month) smoker, HTN, HLP, family history of CAD, obesity. Risk Scores: Score 0 - 3: 2.5% MACE over next 6 weeks - Discharge Home Score 4 - 6: 20.3% MACE over next 6 weeks - Admit for Clinical Observation Score 7 - 10: 72.7% MACE over next 6 weeks - Early Invasive Strategies Allergies: Allergies: Allergies Coded Allergies Type Severity Reaction Last Updated Verified No Known Drug Allergies 06/06/18 No Physical Exam: PE: Constitutional: Well developed, well nourished, no acute distress, non-toxic appearance. [] HENT: Normocephalic, atraumatic, bilateral external ears normal, oropharynx moist, no oral exudates, nose normal. [] Eyes: PERRLA, EOMI, conjunctiva normal, no discharge. [] Neck: Normal range of motion, no tenderness, supple, no stridor. [] Cardiovascular:Heart rate regular rhythm, no murmur [left wall chest tenderness no crepitus] Lungs & Thorax: No respiratory distress Abdomen: Bowel sounds normal, soft, gravid abdomen tender to palpation lower pelvis no rebound or guarding Skin: Warm, dry, no erythema, no rash. [] Back: No tenderness, no CVA tenderness. [] Extremities: No tenderness, no cyanosis, no clubbing, ROM intact, no edema. [Pain with range of motion left shoulder] Neurologic: Alert and oriented X 3, normal motor function, normal sensory function, no focal deficits noted. [] Psychologic: Affect normal, judgement normal, mood normal. [] Current Patient Data: Vital Signs: Vital Signs Date Time Temp Pulse Resp B/P (MAP) Pulse Ox O2 Delivery O2 Flow Rate FiO2 03/09/20 00:08 98.9 89 20 119/73 (88) 99 Room Air 98.9 EKG: EKG: [] Radiology/Procedures: Radiology/Procedures: [] Course & Med Decision Making: Course & Med Decision Making Pertinent Labs and Imaging studies reviewed. (See chart for details) [] heart tones obtained 166 bpm. Ultrasound performed IUP well-child no acute abnormalities Dragon Disclaimer: Dragtashi Disclaimer: This electronic medical record was generated, in whole or in part, using a voice recognition dictation system. Departure Departure Impression: Primary Impression: Fall (on) (from) other stairs and steps, initial encounter Additional Impression: Referrals: NO PCP (PCP) Patient Instructions: Abdominal Pain During , Contusion, Fall Prevention and Home Safety Justicifation of Admission Dx: Justifications for Admission: Justification of Admission Dx: N/A NEAL VELAZQUEZ DO Mar 09, 2020 01:19
[2020-03-09 01:38] VITALS: BP 99/54
--- NOTE | 2020-03-09 01:39 | RAD ---
Obstetrical ultrasound limited. HISTORY: Fall down stairs, Ultrasound showed a intrauterine . Placenta was anterior without previa. survey was not performed. Fetus was in transverse position. There is a normal amount of amniotic fluid. Maternal ovaries were not identified. Heart beat was noted with a rate of 171 bpm. Measurements were obtained including biparietal diameter of 3 cm corresponding to 15 weeks 4 days, head circumference of 11.5 cm corresponding to 15 weeks 4 days, abdominal circumference 19.4 cm corresponding to 15 weeks 4 days, femur length 1.7 cm corresponding to 14 weeks 6 days. Estimated gestational age by ultrasound 15 weeks 3 days with an estimated date of delivery of August 28, 2020. Electronically signed by: Puma Luther MD (03/09/2020 1:36 AM) [id number]
[2020-03-09] MEDS ORDERED: ACETAMINOPHEN 500 MG TABLET PO ONE (01:45)
== END 2020-03-09 01:46 | disposition home or self-care (01) ==
LOC: ER 23:58
DX: O26.891 Other specified pregnancy related conditions, first trimester (principal); G89.11 Acute pain due to trauma; M25.512 Pain in left shoulder; R07.81 Pleurodynia; R10.2 Pelvic and perineal pain; J45.909 Unspecified asthma, uncomplicated; Z98.890 Other specified postprocedural states; W10.8XXA Fall (on) (from) other stairs and steps, initial encounter; Y93.89 Activity, other specified; Y92.89 Other specified places as the place of occurrence of the external cause; Y99.8 Other external cause status; Z3A.14 14 weeks gestation of pregnancy
CPT/HCPCS: 76815; 99284

== ENCOUNTER → 2020-04-14 | Outpatient (CLI) | payer OTHER ==
--- NOTE | 2020-04-14 16:42 | RAD ---
Clinical indications: High risk . Estimated weight and anatomy scan. COMPARISON: March 09, 2020. Findings: A single intrauterine fetus is seen in cephalic position. heart rate is 145 beats per minute. BPD is 4.71 cm which equals 20 weeks 2 days. HC is 17.53 cm which equals 20 weeks 0 days. AC is 15.1 cm which equals 20 weeks 2 days. FL is 3.27 cm which equals 20 weeks 1 day. Average gestational age by ultrasound is 20 weeks 1 day +/- 12 days with an EDC of August 31, 2020. There has been normal interval growth from the previous study. Estimated weight is 0 lbs and 12 oz. A four-chamber heart and three-vessel cord are identified. stomach and urinary bladder are identified. kidneys are unremarkable. Cord insertion site is unremarkable. The intracranial structures and spine are morphologically normal in appearance. The ventricular trigone measurement is 5.4 mm. Cisterna magna measurement is 3.7 mm. Four extremities are identified.. The nasal labial area is normal. STEPHON using the four quadrant method is 11.9 cm. Cervical length is 4.3 cm. A grade 1 anterior placenta is seen. No placenta previa and no placenta abruptio is identified. The maternal ovaries are not visualized. Impression: Single IUP in cephalic presentation with gestational age of 20 weeks 1 day. Electronically signed by: Mikel Maldonado MD (04/14/2020 4:39 PM) [id number]
== END | disposition home or self-care (01) ==
LOC: US 10:46
PROVIDERS: ATTEND Obstetrics & Gynecology
DX: O09.90 Supervision of high risk pregnancy, unspecified, unspecified trimester (principal); Z3A.20 20 weeks gestation of pregnancy
CPT/HCPCS: 76805

== ENCOUNTER 2020-07-11 12:33 | Observation (INO) | payer OTHER ==
[2020-07-11] MEDS ORDERED: IV RINGERS,LACTATED 1000ML 1,000 ML IV SCH (13:22)
[2020-07-11 13:48] LABS: BILIRUBIN,URINE NEGATIVE (NEG); CLARITY,URINE CLEAR; COLOR,URINE YELLOW; NITRITE,URINE NEGATIVE (NEG); PROTEIN,URINE NEGATIVE (NEG-TRACE); UROBILINOGEN,URINE 0.2 mg/dL (0.2 mg/dL)
[2020-07-11 14:01] LABS: BACTERIA,URINE MODERATE /HPF (0-FEW); RBC,URINE OCC /HPF (0-2); WBC,URINE OCC /HPF (0-4)
== END 2020-07-11 15:40 | disposition home or self-care (01) ==
LOC: 3 SO LND 12:33
PROVIDERS: ADMIT Obstetrics & Gynecology; ATTEND Obstetrics & Gynecology
DX: O99.891 Other specified diseases and conditions complicating pregnancy (principal); O26.893 Other specified pregnancy related conditions, third trimester; R10.2 Pelvic and perineal pain; O62.9 Abnormality of forces of labor, unspecified; N89.8 Other specified noninflammatory disorders of vagina; Z3A.32 32 weeks gestation of pregnancy
CPT/HCPCS: 59025; 81001; 87086; 96360; 96361; G0378; G0379; J7120

== ENCOUNTER → 2020-11-24 | Outpatient (CLI) | payer OTHER ==
[2020-09-01 11:15] VITALS: BP 115/70
[~2020-11-24] MED LIST changes: +DOCU-109 PO; +IBUP-1060 PO; +OXYC1TAB15 PO; +PNV1TABL25 PO
== END ==
LOC: SPEC 15:35
PROVIDERS: ATTEND Obstetrics & Gynecology
DX: Z01.411 Encounter for gynecological examination (general) (routine) with abnormal findings (principal)
CPT/HCPCS: Q0111

== ENCOUNTER → 2020-12-15 | Outpatient (CLI) | payer OTHER ==
[2020-09-01 11:15] VITALS: BP 115/70
== END ==
LOC: SPEC 15:25
PROVIDERS: ATTEND Obstetrics & Gynecology
DX: N76.0 Acute vaginitis (principal); N77.1 Vaginitis, vulvitis and vulvovaginitis in diseases classified elsewhere
CPT/HCPCS: Q0111

== ENCOUNTER 2021-02-16 20:05 | Emergency (ER) | payer OTHER ==
[~2021-02-16] VITALS: Ht 162.6 cm; Wt 71.6 kg
--- NOTE | 2021-02-16 21:00 | RAD ---
Exam: CT head, maxillofacial and cervical spine INDICATION: Closed head injury, left eye pain, neck pain TECHNIQUE: Sequential axial images through the head, face and cervical spine were obtained without th e administration of IV contrast. Exposure: One or more of the following in the visualized dose reduction techniques were utilized for this examination: 1. Automated exposure control 2. Adjustment of the MA and/or KV according to patient size 3. Use of iterative of reconstructive technique Comparisons: None FINDINGS: Head: No focal parenchymal lesion or hemorrhage is identified. There is no midline shift or sulcal effaceme nt. No acute vascular territory infarction is identified. Banks-white distinction is preserved. The ventricular system is within normal limits without compression hydrocephalus. The basal cisterns are well maintained. Face: The visualized portions of the paranasal sinuses and mastoid air cells are well-pneumatized. No acute fractures. Globes and intraorbital contents are normal. Cervical spine: Straightening of cervical spine which may positional. Vertebral body heights are well-maintained. Fracture to the cervical spine is not identified. No significant spondylotic change in cervical spine. Visualized paraspinal soft tissues are unremarkable. IMPRESSION: 1. No acute intracranial abnormality. 2. No acute traumatic injury identified at the face. 3. Negative CT C-spine for acute traumatic injury. Electronically signed by: Isael Mata MD (02/16/2021 8:57 PM) [facility]ON[facility]
[2021-02-16] MEDS ORDERED: KETOROLAC 30 MG/ML VIAL. IM ONE (21:15)
[2021-02-16] MEDS ORDERED: KETOROLAC 30 MG/ML VIAL. IVP ONE (21:15)
--- NOTE | 2021-02-16 23:43 | RAD ---
XR HIP (WITH OR WITHOUT PELVIS) 1 VIEW, XR LUMBAR SPINE 2-3V History: Reason: pain / Spl. Instructions: / History: Technique: 3 views lumbar spine, AP view the pelvis and additional views of the hips. Comparison: None. Findings: Lumbar spine: Normal vertebral body height and alignment. No fracture. Disc spaces are well-maintaine d. Hips and pelvis: Normal alignment. No fracture. Impression: 1. No acute osseous abnormality. Electronically signed by: Rajesh Pimentel DO (02/16/2021 11:40 PM) [facility]
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
[2021-02-16] MEDS ORDERED: METH-561 PO (23:54)
[2021-02-16 23:57] VITALS: BP 90/59
== END 2021-02-17 | disposition home or self-care (01) ==
LOC: ER 20:05
DX: S00.12XA Contusion of left eyelid and periocular area, initial encounter (principal); S09.90XA Unspecified injury of head, initial encounter; M54.2 Cervicalgia; J45.909 Unspecified asthma, uncomplicated; V49.59XA Passenger injured in collision with other motor vehicles in traffic accident, initial encounter; Y93.89 Activity, other specified; Y92.488 Other paved roadways as the place of occurrence of the external cause; Y99.8 Other external cause status
CPT/HCPCS: 70450; 70486; 72100; 72125; 73521; 81025; 96372; 99285; J1885

== ENCOUNTER → 2021-05-04 | Outpatient (CLI) | payer OTHER ==
[~2021-05-04] MED LIST changes: +METH-561 PO
== END ==
LOC: SPEC 11:49
PROVIDERS: ATTEND Obstetrics & Gynecology
DX: N89.8 Other specified noninflammatory disorders of vagina (principal)
CPT/HCPCS: Q0111

== ENCOUNTER → 2021-05-31 | Outpatient (CLI) | payer OTHER | LOC: SPEC 12:17 | PROVIDERS: ATTEND Obstetrics & Gynecology | DX: N89.8 Other specified noninflammatory disorders of vagina (principal) | CPT/HCPCS: Q0111 ==

== ENCOUNTER → 2021-06-20 | Outpatient (CLI) | payer OTHER | LOC: LAB 11:54 | PROVIDERS: ATTEND Obstetrics & Gynecology | DX: Z32.01 Encounter for pregnancy test, result positive (principal) | CPT/HCPCS: 36415; 84702 ==

== ENCOUNTER → 2021-06-22 | Outpatient (CLI) | payer OTHER | LOC: LAB 16:03 | PROVIDERS: ATTEND Obstetrics & Gynecology | DX: Z32.01 Encounter for pregnancy test, result positive (principal) | CPT/HCPCS: 36415; 84702 ==

== ENCOUNTER → 2021-06-27 | Outpatient (CLI) | payer OTHER | LOC: LAB 13:47 | PROVIDERS: ATTEND Obstetrics & Gynecology | DX: Z34.91 Encounter for supervision of normal pregnancy, unspecified, first trimester (principal) | CPT/HCPCS: 36415; 84702 ==

== ENCOUNTER → 2021-06-28 | Outpatient (CLI) | payer OTHER ==
--- NOTE | 2021-06-28 12:34 | RAD ---
US OB <14 WKS +TV History: No heart tones Comparison: None. Technique: Sonographic examination of the pelvis was performed with transabdominal and transvaginal t echnique. Findings: Uterus- Uterine parenchyma: Homogeneous without fibroids. Uterine measurements: 9.8 x 6.4 x 8.4 cm Cervix: Unremarkable. Endometrium- Endometrial Stripe: No gestational sac is identified. No abnormal fluid collections in the endometria l cavity, no obvious mass, and no abnormal blood flow within the endometrium by Doppler. Thickness: 2.0 cm. Adnexa- Right Ovary: Identified and appears normal. Size: 3.1 x 1.4 x 1.9 cm Doppler: Normal. Left Ovary: Identified and appears normal. Size: 2.4 x 1.8 x 1.7 cm Doppler: Normal. Mass: No abnormal adnexal masses. Fluid: Small free fluid in the cul-de-sac. Additional findings: None. Impression: Thickened endometrium without gestational sac identified. No intrauterine gestation or ectopic pregna ncy identified. This is consistent with a of unknown location. Differential includes early intrauterine , occult ectopic or failed early . Recommend close follow-up with beta hCG testing and repeat ultrasound if indicated. Electronically signed by: Marvin Salguero MD (06/28/2021 12:32 PM) [id number]
== END ==
LOC: US 11:01
PROVIDERS: ATTEND Obstetrics & Gynecology
DX: R93.89 Abnormal findings on diagnostic imaging of other specified body structures (principal)
CPT/HCPCS: 76801; 76817

== ENCOUNTER → 2021-07-06 | Outpatient (CLI) | payer OTHER | LOC: LAB 11:16 | PROVIDERS: ATTEND Obstetrics & Gynecology | DX: O02.1 Missed abortion (principal); Z3A.00 Weeks of gestation of pregnancy not specified | CPT/HCPCS: 36415; 84702 ==

== ENCOUNTER → 2021-08-18 | Outpatient (CLI) | payer OTHER | LOC: SPEC 12:54 | PROVIDERS: ATTEND Obstetrics & Gynecology | DX: N89.8 Other specified noninflammatory disorders of vagina (principal) | CPT/HCPCS: Q0111 ==

== ENCOUNTER 2021-09-08 11:58 | Emergency (ER) | payer OTHER ==
[~2021-09-08] VITALS: Ht 162.6 cm; Wt 67.1 kg
[2021-09-08 12:08] VITALS: BP 112/63
[2021-09-08] MEDS ORDERED: ACETAMINOPHEN 325 MG TABLET. PO ONE (13:15)
[2021-09-08] MEDS ORDERED: CIPR10DR EACH EAR (13:31)
--- NOTE | 2021-09-08 13:31 | PHYS DOC ---
Past Medical History Past Medical History: No Pertinent History, Asthma Past Surgical History: , Other Additional Past Surgical Histo: DNC(2018) Smoking Status: Never Smoker Alcohol Use: None Drug Use: None General Adult EDM: Chief Complaint: EARACHE/EAR PAIN HPI: HPI: Patient is a A2 31 year old female who presents with bilateral ear pain. Patient reports her pain started in her right ear only, but that that the past few days it has been in both. She reports the pain is most severe at night, and brings her to tears. She has not taken any medication to help in pain relief at home. Patient denies nasal congestion, runny nose, sore throat. She is also concerned that she is . Patient reports that she got in June, but miscarried. The first day of her last menstrual period was 08/08/2021. She had some brown-colored spotting yesterday. She has 2 children at home, with her youngest child being 1-year-old. She miscarried once in between her 2 children. Review of Systems: Review of Systems: Constitutional: Denies fever or chills. Eyes: Denies change in visual acuity or visual field deficits. HENT: See HPI Respiratory: Denies cough or shortness of breath. Cardiovascular: Denies chest pain or edema. GI: Denies abdominal pain, nausea, vomiting, bloody stools or diarrhea. Musculoskeletal: Denies back pain or joint pain. Integument: Denies rash or other skin lesions. Neurologic: Denies headache, focal weakness or sensory changes. Heart Score: C/O Chest Pain: No Current Medications: Current Medications Medications (Trade) Dose Ordered Sig/Brien Start Time Stop Time Status Last Admin Dose Admin Acetaminophen (Tylenol) 650 mg 1X ONCE 09/08/21 13:15 09/08/21 13:16 Allergies: Allergies: Allergies Coded Allergies Type Severity Reaction Last Updated Verified No Known Drug Allergies 09/08/21 No Physical Exam: PE: Constitutional: Well developed, well nourished, no acute distress, non-toxic appearance. HENT: Normocephalic, atraumatic, bilateral tragal tenderness, bilateral ears without obvious deformity or discharge, bilateral ear canals erythematous, orop harynx moist, no oral exudates, nose without obvious deformity or discharge, bilateral turbinates enlarged and erythematous. Eyes: PERRLA, EOMI, conjunctiva normal, no discharge. Neck: Normal range of motion, no tenderness, bilateral preauricular lymphadenopathy. Cardiovascular: Heart rate regular rhythm, no murmur. Lungs & Thorax: Bilateral breath sounds clear to auscultation. Current Patient Data: Labs: Laboratory Tests Test 09/08/21 12:17 POC Urine HCG, Qualitative Hcg positive (Negative) Vital Signs: Vital Signs Date Time Temp Pulse Resp B/P (MAP) Pulse Ox O2 Delivery O2 Flow Rate FiO2 09/08/21 12:08 98.5 90 16 112/63 (79) 97 Room Air 98.5 Course & Med Decision Making: Course & Med Decision Making Pertinent Labs and Imaging studies reviewed. (See chart for details) Patient is a 31-year-old female who presents with chief complaint of bilateral ear pain. She also reveals that she has a concern for . As stated above, she was in June of this year but miscarried. She then had a normal menstrual period last month. This month, she states that her period is few days late. She states that the last time she got , she was using oral contraceptive control. She has since switched her control method to the patch. Urine test is positive. Patient states that she gets gynecological and obstetric care from Dr. Moreno, associated with [place]. Advised her to follow up with him at her earliest convenience. She is provided with a prescription for antibiotic eardrops for bilateral acute otitis externa. Patient advised to return to the emergency department if her symptoms do not improve, worsen or she develops new symptoms. Patient understands and is agreeable to discharge plan. Patel Disclaimer: Ptael Disclaimer: This electronic medical record was generated, in whole or in part, using a voice recognition dictation system. Departure Departure Impression: Primary Impression: Unspecified otitis externa, bilateral Qualified Codes: H60.393 - Other infective otitis externa, bilateral Additional Impression: Qualified Codes: Z34.90 - Encounter for supervision of normal , unspecified, unspecified trimester Disposition: 01 HOME / SELF CARE / HOMELESS Condition: STABLE Referrals: NO PCP (PCP) ANNY MORENO MD Patient Instructions: Otitis Externa, [id number], - First Trimester, [id number] Additional Instructions: Please return to the emergency department if your symptoms worsen or you develop new symptoms. Scripts Ciprofloxacin/Hydrocortisone (CIPRO HC OTIC SUSPENSION) 10 Ml Drops.susp 3 DROP EACH EAR BID for 7 Days, #10 ML Prov: ROZINA VILLA 09/08/21 ROZINA VILLA Sep 08, 2021 13:31
== END 2021-09-08 13:34 | disposition home or self-care (01) ==
LOC: ER 11:58
DX: O26.891 Other specified pregnancy related conditions, first trimester (principal); H60.393 Other infective otitis externa, bilateral; O99.511 Diseases of the respiratory system complicating pregnancy, first trimester; J45.909 Unspecified asthma, uncomplicated; Z3A.00 Weeks of gestation of pregnancy not specified
CPT/HCPCS: 81025; 99283

== ENCOUNTER → 2021-09-20 | Outpatient (CLI) | payer OTHER ==
[2021-09-08 12:08] VITALS: BP 112/63
[~2021-09-20] MED LIST changes: +CIPR10DR EACH EAR
== END ==
LOC: LAB 12:38
PROVIDERS: ATTEND Obstetrics & Gynecology
DX: Z32.01 Encounter for pregnancy test, result positive (principal)
CPT/HCPCS: 36415; 84702

== ENCOUNTER → 2021-09-28 | Outpatient (CLI) | payer OTHER ==
[2021-09-08 12:08] VITALS: BP 112/63
--- NOTE | 2021-09-28 11:16 | RAD ---
US OB <14 WKS History: Reason: High Risk 1st trimester / Spl. Instructions: / History: Comparison: April 14, 2020 and June 28, 2021. Technique: Grayscale and color Doppler imaging of the pelvis was performed using transabdominal techn ique. Findings: The uterus measures 11.2 x 8.6 x 2.6 cm. Cervical length 4.6 cm. Rounded appearing region within the anterior myometrium is likely artifactual not corroborated on prior imaging. Single intrauterine gestational sac with regular appearance. Yolk sac is identified. pole is id entified with crown-rump length 0.94 cm. Estimated gestational age by ultrasound 7 weeks 0 days. Feta l heart rate 137 bpm.No perigestational fluid collection. Estimated date of delivery by ultrasound May 17, 2022. Right ovary measures 3.0 x 2.0 x 1.8 cm. Left ovary measures 3.1 x 2.0 x 1.8 cm. Normal Doppler flow to the ovaries bilaterally. No adnexal masses are seen. IMPRESSION: 1. Single intrauterine with gestational age 7 weeks 0 days and heart rate 137 bpm Electronically signed by: Rajesh Pimentel DO (09/28/2021 11:14 AM) [id number]
== END ==
LOC: US 08:44
PROVIDERS: ATTEND Obstetrics & Gynecology
DX: O09.71 Supervision of high risk pregnancy due to social problems, first trimester (principal); Z3A.01 Less than 8 weeks gestation of pregnancy
CPT/HCPCS: 76801

== ENCOUNTER → 2021-10-21 | Outpatient (CLI) | payer OTHER | LOC: SPEC 16:15 | PROVIDERS: ATTEND Obstetrics & Gynecology | DX: N89.8 Other specified noninflammatory disorders of vagina (principal) | CPT/HCPCS: Q0111 ==

== ENCOUNTER → 2021-10-24 | Outpatient (CLI) | payer OTHER ==
[2021-10-25 06:40] LABS: HEMATOCRIT 38.4 % (36.0-47.0); HEMOGLOBIN 12.7 g/dL (12.0-15.5); RED BLOOD COUNT 4.23 x10^6/uL (3.50-5.40); RED CELL DISTRIBUTION WIDTH 15.7 % (11.5-14.5); WHITE BLOOD COUNT 4.7 x10^3/uL (4.0-11.0)
[2021-10-25 15:17] LABS: RUBELLA IGG ANTIBODY 5.22 index (Immune >0.99)
== END ==
LOC: LAB 14:40
PROVIDERS: ATTEND Obstetrics & Gynecology
DX: O09.71 Supervision of high risk pregnancy due to social problems, first trimester (principal)
CPT/HCPCS: 36415; 85027; 85660; 86592; 86703; 86762; 86787; 86803; 86850; 86900; 86901; 87340

== ENCOUNTER 2021-11-05 09:37 | Emergency (ER) | payer OTHER ==
[~2021-11-05] VITALS: Ht 162.6 cm; Wt 66.0 kg
[2021-11-05 10:33] LABS: BACTERIA,URINE FEW /HPF (0-FEW); BILIRUBIN,URINE SMALL (NEG); CLARITY,URINE HAZY; COLOR,URINE YELLOW; NITRITE,URINE NEGATIVE (NEG); PH,URINE 6.5 (<5.0-8.0); PROTEIN,URINE TRACE mg/dL (NEG-TRACE)
--- NOTE | 2021-11-05 10:49 | PHYS DOC ---
Past Medical History Past Medical History: No Pertinent History, Asthma Past Surgical History: , Other Additional Past Surgical Histo: DNC(2018) Smoking Status: Never Smoker Alcohol Use: None Drug Use: None General Adult EDM: Chief Complaint: VAGINAL BLEEDING HPI: HPI: Patient is a 31-year-old female that presents today with vaginal bleeding. Patient states that her last normal menstrual period was August [id number], she states she was seen by her DX BOARD OPERATOR Dr. Moreno yesterday and had some bit lab test done and heart tones were done she states no ultrasound was done, she states this morning she woke up around 4:00 in the morning feeling like she had urinated on herself and she said she noted blood and she states she has been bleeding since that time. Patient denies any sexual activity in the last 24 hours, she states Dr. Moreno did not do a vaginal exam yesterday. Patient states she is a 5 para 2 AB 2. Patient denies abdominal pain, she denies painful urination, she states that she has had some vaginal discharge but Dr. Moreno told her that was normal for . Review of Systems: Review of Systems: Constitutional: Denies fever or chills. [] Eyes: Denies change in visual acuity. [] HENT: Denies nasal congestion or sore throat. [] Respiratory: Denies cough or shortness of breath. [] Cardiovascular: Denies chest pain or edema. [] GI: Denies abdominal pain, nausea, vomiting, bloody stools or diarrhea. [] : Vaginal bleeding denies dysuria. [] Musculoskeletal: Denies back pain or joint pain. [] Integument: Denies rash. [] Neurologic: Denies headache, focal weakness or sensory changes. [] Endocrine: Denies polyuria or polydipsia. [] Lymphatic: Denies swollen glands. [] Psychiatric: Denies depression or anxiety. [] Heart Score: C/O Chest Pain: N/A Risk Factors: Risk Factors: DM, Current or recent (<one month) smoker, HTN, HLP, family history of CAD, obesity. Risk Scores: Score 0 - 3: 2.5% MACE over next 6 weeks - Discharge Home Score 4 - 6: 20.3% MACE over next 6 weeks - Admit for Clinical Observation Score 7 - 10: 72.7% MACE over next 6 weeks - Early Invasive Strategies Allergies: Allergies: Allergies Coded Allergies Type Severity Reaction Last Updated Verified No Known Drug Allergies 09/08/21 No Physical Exam: PE: Constitutional: Well developed, well nourished, no acute distress, non-toxic appearance. [] HENT: Normocephalic, atraumatic, bilateral external ears normal, oropharynx moist, no oral exudates, nose normal. [] Eyes: PERRLA, EOMI, conjunctiva normal, no discharge. [] Neck: Normal range of motion, no tenderness, supple, no stridor. [] Cardiovascular:Heart rate regular rhythm, no murmur [] Lungs & Thorax: Bilateral breath sounds clear to auscultation [] Abdomen: Bowel sounds normal, soft, no tenderness, no masses, no pulsatile masses. [] Skin: Warm, dry, no erythema, no rash. [] Back: No tenderness, no CVA tenderness. [] Extremities: No tenderness, no cyanosis, no clubbing, ROM intact, no edema. [] Neurologic: Alert and oriented X 3, normal motor function, normal sensory function, no focal deficits noted. [] Psychologic: Affect normal, judgement normal, mood normal. [] Current Patient Data: Labs: Laboratory Tests Test 11/05/21 09:53 11/05/21 10:06 Urine Collection Type Unknown Urine Color Yellow Urine Clarity Hazy Urine pH 6.5 (<5.0-8.0) Urine Specific [place] >=1.030 (1.000-1.030) Urine Protein Trace mg/dL (NEG-TRACE) Urine Glucose (UA) Negative mg/dL (NEG) Urine Ketones (Stick) 80 mg/dL (NEG) Urine Blood Large (NEG) Urine Nitrite Negative (NEG) Urine Bilirubin Small (NEG) Urine Urobilinogen Dipstick 4.0 mg/dL (0.2 mg/dL) Urine Leukocyte Esterase Negative (NEG) Urine RBC 11-20 /HPF (0-2) Urine WBC 1-4 /HPF (0-4) Urine Squamous Epithelial Cells Mod /LPF Urine Bacteria Few /HPF (0-FEW) Urine Mucus Mod /LPF POC Urine HCG, Qualitative Hcg positive (Negative) Vital Signs: Vital Signs Date Time Temp Pulse Resp B/P (MAP) Pulse Ox O2 Delivery O2 Flow Rate FiO2 11/05/21 12:24 80 18 102/55 (71) 99 Room Air 11/05/21 09:54 98.3 88 12 108/57 (74) 98 Room Air 98.3 Vital Signs Date Time Temp Pulse Resp B/P (MAP) Pulse Ox O2 Delivery O2 Flow Rate FiO2 11/05/21 09:54 98.3 88 12 108/57 (74) 98 Room Air 98.3 EKG: EKG: [] Radiology/Procedures: Radiology/Procedures: REASON: vaginal bleeding PROCEDURE: OB < 14 WKS EXAMINATION: US OB <14 WKS +TV (FIRST TRIMESTER PELVIC ULTRASOUND) CLINICAL HISTORY: Vaginal bleeding. TECHNIQUE: Sonography of the pelvis was performed by transabdominal technique only. COMPARISON: None. FINDINGS: Uterus: - Orientation: Anteverted - Size: 15.9 x 12.3 x 10.1 cm - Myometrium: Homogeneous echotexture - Cervix: Cervical length 4.1 cm Gestation: - Intrauterine Gestational Sac: Single present - Amniotic fluid volume subjectively within normal limits - Yolk Sac: Present - Embryo: Single present - [place] Rump Length: 5.9 cm, corresponding gestational age 12 weeks 3 days - Heart Rate: 150 bpm - Perigestational Hemorrhage: Small perigestational hemorrhage. IMPRESSION: Single, live intrauterine gestation with sonographic estimated gestational age 12 weeks 3 days and estimated date of delivery 05/17/2022. Small perigestational hemorrhage. Electronically signed by: Gunnar Howard DO (11/05/2021 11:35 AM) [facility] [] Course & Med Decision Making: Course & Med Decision Making Pertinent Labs and Imaging studies reviewed. (See chart for details) [[address] Moreno from [employer], consulted him regarding this patient's situation his recommendation was for the patient to follow-up in 1 week in his office and to give return precautions for further vaginal bleeding. 1230 reviewed radiological and laboratory results with patient, did discuss my conversation with Dr. Moreno with her and informed her that he would like to see her in the office in 1 week for further evaluation. I did give return precautions which included increased vaginal bleeding with tissue passing, abdominal pain, any dizziness, or any other concerns she may have. Patient is to call on Sunday for an appointment next week with Dr. Moreno. Patient was instructed to continue all her vitamins as recommended by Dr. Moreno. Dragon Disclaimer: Dragon Disclaimer: This electronic medical record was generated, in whole or in part, using a voice recognition dictation system. Departure Departure Impression: Primary Impression: Vaginal bleeding in patient after first trimester Disposition: HOME / SELF CARE / HOMELESS Condition: STABLE Referrals: NO PCP (PCP) ANNY MORENO MD Patient Instructions: Vaginal Bleeding During , First Trimester Additional Instructions: Continue to take your vitamins as previously prescribed by Dr. Moreno Follow-up with Dr. Moreno next week in the office call on Sunday for an appointment Return to the emergency department for increased vaginal bleeding with passage of tissue or increased abdominal pain SOUTH DELACRUZ APRN Nov 05, 2021 10:49
--- NOTE | 2021-11-05 11:37 | RAD ---
EXAMINATION: US OB <14 WKS +TV (FIRST TRIMESTER PELVIC ULTRASOUND) CLINICAL HISTORY: Vaginal bleeding. TECHNIQUE: Sonography of the pelvis was performed by transabdominal technique only. COMPARISON: None. FINDINGS: Uterus: - Orientation: Anteverted - Size: 15.9 x 12.3 x 10.1 cm - Myometrium: Homogeneous echotexture - Cervix: Cervical length 4.1 cm Gestation: - Intrauterine Gestational Sac: Single present - Amniotic fluid volume subjectively within normal casiano its - Yolk Sac: Present - Embryo: Single present - [place] Rump Length: 5.9 cm, corresponding gestational age 12 weeks 3 days - Heart Rate: 150 bpm - Perigestational Hemorrhage: Small perigestational hemorrhage. IMPRESSION: Single, live intrauterine gestation with sonographic estimated gestational age 12 weeks 3 days and es timated date of delivery 05/17/2022. Small perigestational hemorrhage. Electronically signed by: Gunnar Howard DO (11/05/2021 11:35 AM) [facility]
[2021-11-05 11:43] LABS: BASO % 1 % (0-3); EOS # 0.1 x10^3/uL (0.0-0.7); EOS % 2 % (0-3); HEMOGLOBIN 11.5 g/dL (12.0-15.5); LYMPH # 1.5 x10^3/uL (1.0-4.8); LYMPH % 35 % (24-48); MEAN CORPUSCULAR HEMOGLOBIN 30 pg (25-35); MEAN CORPUSCULAR HGB CONC 33 g/dL (31-37); MEAN CORPUSCULAR VOLUME 90 fL (79-100); MONO # 0.4 x10^3/uL (0.0-1.1); MONO % 9 % (0-9); NEUT # 2.4 x10^3/uL (1.8-7.7); NEUT % 54 % (31-73); PLATELET COUNT 215 x10^3/uL (140-400); RED BLOOD COUNT 3.89 x10^6/uL (3.50-5.40); RED CELL DISTRIBUTION WIDTH 15.1 % (11.5-14.5); WHITE BLOOD COUNT 4.4 x10^3/uL (4.0-11.0)
[2021-11-05 12:24] VITALS: BP 102/55
== END 2021-11-05 12:53 | disposition home or self-care (01) ==
LOC: ER 09:37
DX: O46.91 Antepartum hemorrhage, unspecified, first trimester (principal); O99.511 Diseases of the respiratory system complicating pregnancy, first trimester; J45.909 Unspecified asthma, uncomplicated; Z3A.12 12 weeks gestation of pregnancy
CPT/HCPCS: 36415; 76801; 81001; 81025; 84702; 85025; 86850; 86900; 86901; 99284-25

== ENCOUNTER 2021-11-23 10:22 | Emergency (ER) | payer OTHER ==
[~2021-11-23] VITALS: Ht 162.6 cm; Wt 66.8 kg
[2021-11-23 11:13] LABS: BASO % 1 % (0-3); EOS % 1 % (0-3); HEMATOCRIT 34.4 % (36.0-47.0); HEMOGLOBIN 11.6 g/dL (12.0-15.5); LYMPH # 1.4 x10^3/uL (1.0-4.8); LYMPH % 32 % (24-48); MEAN CORPUSCULAR HEMOGLOBIN 30 pg (25-35); MEAN CORPUSCULAR HGB CONC 34 g/dL (31-37); MEAN CORPUSCULAR VOLUME 88 fL (79-100); MONO # 0.5 x10^3/uL (0.0-1.1); MONO % 10 % (0-9); NEUT # 2.6 x10^3/uL (1.8-7.7); NEUT % 57 % (31-73); PLATELET COUNT 281 x10^3/uL (140-400); RED CELL DISTRIBUTION WIDTH 14.4 % (11.5-14.5); WHITE BLOOD COUNT 4.5 x10^3/uL (4.0-11.0)
[2021-11-23 11:21] LABS: BILIRUBIN,URINE NEGATIVE (NEG); CLARITY,URINE CLEAR; COLOR,URINE YELLOW
[2021-11-23 11:22] LABS: AMORPHOUS SEDIMENT,UR PRESENT /HPF; BACTERIA,URINE 0 /HPF (0-FEW); NITRITE,URINE NEGATIVE (NEG); PH,URINE 7.5 (<5.0-8.0); PROTEIN,URINE NEGATIVE (NEG-TRACE); WBC,URINE 0 /HPF (0-4)
--- NOTE | 2021-11-23 11:48 | RAD ---
EXAM: Obstetrics sonogram. HISTORY: Vaginal bleeding. TECHNIQUE: Sonographic imaging of a gravid uterus was performed. COMPARISON: 11/05/2021. FINDINGS: There is a single intrauterine fetus in cephalic presentation. There is a normal hear t rate of 155 bpm. There is normal body motion. The biparietal diameter is 3.33 cm, correspondi ng with a gestational age of 16 weeks and 2 days. The head circumference is 12.49 cm, corresponding w ith a gestational age of 16 weeks and 2 days. The abdominal circumference is 9.39 cm, corresponding w ith a gestational age of 15 weeks and 4 days. The femoral length is 1.79 cm, corresponding with a ges tational age of 15 weeks and 2 days. The estimated gestational age based on combined ultrasound measu rements is 15 weeks and 6 days and the due date is 05/11/2022. There is a posterior grade 1 placenta. T here is moderate chorioamnionic separation. No placental abruption is seen. The cervix is closed and long. The maternal adnexal regions are unremarkable. IMPRESSION: 1. Single intrauterine fetus with normal heart rate and gestational age based on ultrasound measureme nts of 15 weeks and 6 days. 2. Moderate chorioamnionic separation. Spontaneous separation can be associated with underlying aneup loidy or developmental abnormality and can be associated with significant intrauterine complication. Close clinical follow up with maternal medicine consultation is recommended. Electronically signed by: Nu Bowers MD (11/23/2021 11:46 AM) [id number]
--- NOTE | 2021-11-23 12:20 | PHYS DOC ---
Past Medical History Past Medical History: No Pertinent History, Asthma Past Surgical History: No Surgical History Additional Past Surgical Histo: DNC(2018) Smoking Status: Never Smoker Alcohol Use: None Drug Use: None General Adult EDM: Chief Complaint: VAGINAL BLEEDING HPI: HPI: Patient is a 31-year-old female that presents today with vaginal bleeding. Patient states she is approximately 15 weeks and starting this morning around 7:00 she started having some vaginal bleeding with clots, she said she went through 4 small menstrual pads, she called her BUSINESS OFFICE SPECIALIST Dr. Pimentel in his office recommended that she go to the emergency department for further ericka luation. Patient states that she is a 5 para 2 AB 2, she says that her next appointment with Dr. Pimentel is November 30, 2021. Patient was here approximately 1 month ago for vaginal bleeding and was seen in the emergency department, she states that she saw Dr. Pimentel in the office approximately 1 week later and that she says she has not had any sexual intercourse or anything into her vagina since she was seen in October. Review of Systems: Review of Systems: Constitutional: Denies fever or chills. [] Eyes: Denies change in visual acuity. [] HENT: Denies nasal congestion or sore throat. [] Respiratory: Denies cough or shortness of breath. [] Cardiovascular: Denies chest pain or edema. [] GI: Denies abdominal pain, nausea, vomiting, bloody stools or diarrhea. [] /DATA WAREHOUSE SPECIALIST: Vaginal bleeding denies dysuria. [] Musculoskeletal: Denies back pain or joint pain. [] Integument: Denies rash. [] Neurologic: Denies headache, focal weakness or sensory changes. [] Endocrine: Denies polyuria or polydipsia. [] Lymphatic: Denies swollen glands. [] Psychiatric: Denies depression or anxiety. [] Heart Score: C/O Chest Pain: No Risk Factors: Risk Factors: DM, Current or recent (<one month) smoker, HTN, HLP, family history of CAD, obesity. Risk Scores: Score 0 - 3: 2.5% MACE over next 6 weeks - Discharge Home Score 4 - 6: 20.3% MACE over next 6 weeks - Admit for Clinical Observation Score 7 - 10: 72.7% MACE over next 6 weeks - Early Invasive Strategies Allergies: Allergies: Allergies Coded Allergies Type Severity Reaction Last Updated Verified No Known Drug Allergies 11/23/21 No Physical Exam: PE: Constitutional: Well developed, well nourished, no acute distress, non-toxic appearance. [] HENT: Normocephalic, atraumatic, bilateral external ears normal, oropharynx moist, no oral exudates, nose normal. [] Eyes: PERRLA, EOMI, conjunctiva normal, no discharge. [] Neck: Normal range of motion, no tenderness, supple, no stridor. [] Cardiovascular:Heart rate regular rhythm, no murmur [] Lungs & Thorax: Bilateral breath sounds clear to auscultation [] Abdomen: Bowel sounds normal, soft, no tenderness, no masses, no pulsatile mas ses. [] Skin: Warm, dry, no erythema, no rash. [] Back: No tenderness, no CVA tenderness. [] Extremities: No tenderness, no cyanosis, no clubbing, ROM intact, no edema. [] Neurologic: Alert and oriented X 3, normal motor function, normal sensory function, no focal deficits noted. [] Psychologic: Affect normal, judgement normal, mood normal. [] Current Patient Data: Labs: Laboratory Tests Test 11/23/21 10:26 11/23/21 10:56 Urine Collection Type Unknown Urine Color Yellow Urine Clarity Clear Urine pH 7.5 (<5.0-8.0) Urine Specific [place] 1.015 (1.000-1.030) Urine Protein Negative mg/dL (NEG-TRACE) Urine Glucose (UA) Negative mg/dL (NEG) Urine Ketones (Stick) Negative mg/dL (NEG) Urine Blood Large (NEG) Urine Nitrite Negative (NEG) Urine Bilirubin Negative (NEG) Urine Urobilinogen Dipstick 1.0 mg/dL (0.2 mg/dL) Urine Leukocyte Esterase Negative (NEG) Urine RBC 1-2 /HPF (0-2) Urine WBC 0 /HPF (0-4) Urine Amorphous Sediment Present /HPF Urine Bacteria 0 /HPF (0-FEW) White Blood Count 4.5 x10^3/uL (4.0-11.0) Red Blood Count 3.90 x10^6/uL (3.50-5.40) Hemoglobin 11.6 g/dL (12.0-15.5) L Hematocrit 34.4 % (36.0-47.0) L Mean Corpuscular Volume 88 fL (79-100) Mean Corpuscular Hemoglobin 30 pg (25-35) Mean Corpuscular Hemoglobin Concent 34 g/dL (31-37) Red Cell Distribution Width 14.4 % (11.5-14.5) Platelet Count 281 x10^3/uL (140-400) Neutrophils (%) (Auto) 57 % (31-73) Lymphocytes (%) (Auto) 32 % (24-48) Monocytes (%) (Auto) 10 % (0-9) H Eosinophils (%) (Auto) 1 % (0-3) Basophils (%) (Auto) 1 % (0-3) Neutrophils # (Auto) 2.6 x10^3/uL (1.8-7.7) Lymphocytes # (Auto) 1.4 x10^3/uL (1.0-4.8) Monocytes # (Auto) 0.5 x10^3/uL (0.0-1.1) Eosinophils # (Auto) 0.0 x10^3/uL (0.0-0.7) Basophils # (Auto) 0.0 x10^3/uL (0.0-0.2) Maternal Serum HCG Beta Subunit 75339 mIU/mL (0-5) H Laboratory Tests 11/23/21 10:56 Vital Signs: Vital Signs Date Time Temp Pulse Resp B/P (MAP) Pulse Ox O2 Delivery O2 Flow Rate FiO2 11/23/21 13:10 98 14 103/64 (77) 98 11/23/21 11:00 96 16 114/76 (89) 100 11/23/21 10:31 97 16 120/66 (84) 98 11/23/21 10:25 97.8 111 18 120/66 (84) 99 Room Air 97.8 Vital Signs Date Time Temp Pulse Resp B/P (MAP) Pulse Ox O2 Delivery O2 Flow Rate FiO2 11/23/21 11:00 96 16 114/76 (89) 100 11/23/21 10:25 97.8 Room Air 97.8 EKG: EKG: [] Radiology/Procedures: Radiology/Procedures: REASON: vaginal bleeding and 15 weeks PROCEDURE: PREG MORE THAN OR EQ TO 14 WKS EXAM: Obstetrics sonogram. HISTORY: Vaginal bleeding. TECHNIQUE: Sonographic imaging of a gravid uterus was performed. COMPARISON: 11/05/2021. FINDINGS: There is a single intrauterine fetus in cephalic presentation. There is a normal heart rate of 155 bpm. There is normal body motion. The biparietal diameter is 3.33 cm, corresponding with a gestational age of 16 weeks and 2 days. The head circumference is 12.49 cm, corresponding with a gestational age of 16 weeks and 2 days. The abdominal circumference is 9.39 cm, corresponding with a gestational age of 15 weeks and 4 days. The femoral length is 1.79 cm, corresponding with a gestational age of 15 weeks and 2 days. The estimated gestational age based on combined ultrasound measurements is 15 weeks and 6 days and the due date is 05/11/2022. There is a posterior grade 1 placenta. There is moderate chorioamnionic separation. No placental abruption is seen. The cervix is closed and long. The maternal adnexal regions are unremarkable. IMPRESSION: 1. Single intrauterine fetus with normal heart rate and gestational age based on ultrasound measurements of 15 weeks and 6 days. 2. Moderate chorioamnionic separation. Spontaneous separation can be associated with underlying aneuploidy or developmental abnormality and can be associated with significant intrauterine complication. Close clinical follow up with maternal medicine consultation is recommended. Electronically signed by: Nu Bowers MD (11/23/2021 11:46 AM) [id number] [] Course & Med Decision Making: Course & Med Decision Making Pertinent Labs and Imaging studies reviewed. (See chart for details) [address] Pimentel with [employer] services regarding this patient's ultrasound results and laboratory results, I did inform him that he she does have an appointment next week with him, he recommended that she go home and continue vaginal rest as she has been directed in the past and to return to the emergency department for increased vaginal bleeding, he states he will see her in the office next week on the for further evaluation. Did talk with patient regarding the recommendations made by Dr. Pimentel and she is agreeable to outpatient management. I did give her return precautions and she verbalized understanding of these. Dragon Disclaimer: Dragon Disclaimer: This electronic medical record was generated, in whole or in part, using a voice recognition dictation system. Departure Departure Impression: Primary Impression: Vaginal bleeding in patient after first trimester Disposition: HOME / SELF CARE / HOMELESS Condition: STABLE Referrals: NO PCP (PCP) ANNY PIMENTEL MD Patient Instructions: Vaginal Bleeding During , Second Trimester Additional Instructions: Tylenol as needed for pain Make sure you are eating healthy meals and drinking plenty of fluids Return to the emergency department if you are soaking through 1 pad an hour for 4 straight hours, increased dizziness, fainting episodes, or increased pain. SOUTH DELACRUZ APRN Nov 23, 2021 12:20
[2021-11-23 13:10] VITALS: BP 103/64
== END 2021-11-23 13:18 | disposition home or self-care (01) ==
LOC: ER 10:22
DX: O46.92 Antepartum hemorrhage, unspecified, second trimester (principal); O99.512 Diseases of the respiratory system complicating pregnancy, second trimester; J45.909 Unspecified asthma, uncomplicated; Z3A.15 15 weeks gestation of pregnancy
CPT/HCPCS: 36415; 76805; 81001; 84702; 85025; 86850; 86900; 86901; 99284-25

== ENCOUNTER 2022-02-07 10:58 | Emergency (ER) | payer OTHER ==
[~2022-02-07] VITALS: Ht 162.6 cm; Wt 66.8 kg
[2022-02-07] MEDS ORDERED: IV NORMAL SALINE 1000ML BAG 1,000 ML IV ONE ×2 (12:00→13:00)
[2022-02-07] MEDS ORDERED: methylPREDNISolone SOD SUCC PF 125 MG/2 ML VIAL. IV ONE (12:00)
[2022-02-07] MEDS ORDERED: ALBUTEROL SULFATE 2.5 MG/3 ML NEBU. NEB ONE (12:00)
[2022-02-07] MEDS ORDERED: ONDANSETRON PF 4 MG/2 ML VIAL. IVP ONE (12:00)
[2022-02-07] MEDS ORDERED: ACETAMINOPHEN 500 MG TABLET PO ONE (12:00)
--- NOTE | 2022-02-07 12:07 | PHYS DOC ---
Past Medical History Past Medical History: No Pertinent History, Asthma Past Surgical History: , Other Additional Past Surgical Histo: DNC(2018), RIGHT WRIST Smoking Status: Former Smoker Alcohol Use: None Drug Use: None General Adult EDM: Chief Complaint: HEADACHE HPI: HPI: Patient is a 31 year old female who presents with 3 days of headache, fever, cough, chills, no appetite, chest tightness or shortness of breath. She does have a history of asthma. She does not have a nebulizer at home but she does have a albuterol inhaler that is not helping much. She has a history of C- section, D&C in 2018 and former smoker. She did not get vaccinated for COVID. She has not been around anyone else who has been sick. She denies abdominal pain, nausea, vomiting, diarrhea, syncope, dizziness, sore throat, nasal congestion, rash, urinary symptoms, numbness or tingling, back pain, vision change, numbness or tingling, chest pain. Review of Systems: Review of Systems: Constitutional: +fever or +chills. [] Eyes: Denies change in visual acuity. [] HENT: Denies nasal congestion or sore throat. [] Respiratory: +cough or +shortness of breath. [] Cardiovascular: Denies chest pain or edema. + Chest tightness [] GI: Denies abdominal pain, nausea, vomiting, bloody stools or diarrhea. + Lack of appetite [] : Denies dysuria. [] Musculoskeletal: Denies back pain or joint pain. + Generalized body aches [] Integument: Denies rash. [] Neurologic: +headache, denies focal weakness or sensory changes. [] Endocrine: Denies polyuria or polydipsia. [] Lymphatic: Denies swollen glands. [] Psychiatric: Denies depression or anxiety. [] Heart Score: C/O Chest Pain: No HEART Score for Chest Pain: HEART Score for Chest Pain Response (Comments) Value History Slighlty/Non-Suspicious 0 ECG Normal 0 Age < 45 0 Risk Factors 1 or 2 Risk Factors 1 Troponin < Normal Limit 0 Total 1 Risk Factors: Risk Factors: DM, Current or recent (<one month) smoker, HTN, HLP, family history of CAD, obesity. Risk Scores: Score 0 - 3: 2.5% MACE over next 6 weeks - Discharge Home Score 4 - 6: 20.3% MACE over next 6 weeks - Admit for Clinical Observation Score 7 - 10: 72.7% MACE over next 6 weeks - Early Invasive Strategies Current Medications: Current Medications Medications (Trade) Dose Ordered Sig/Brien Start Time Stop Time Status Last Admin Dose Admin Acetaminophen (Tylenol) 1,000 mg 1X ONCE 02/07/22 12:00 02/07/22 12:01 Methylprednisolone Sodium Succinate (SOLU-Medrol 125MG VIAL) 80 mg 1X ONCE 02/07/22 12:00 02/07/22 12:01 Ondansetron HCl (Zofran) 4 mg 1X ONCE 02/07/22 12:00 02/07/22 12:01 Sodium Chloride 1,000 ml @ 1,000 mls/hr 1X ONCE 02/07/22 12:00 02/07/22 12:59 Allergies: Allergies: Allergies Coded Allergies Type Severity Reaction Last Updated Verified No Known Drug Allergies 11/23/21 No Physical Exam: PE: Constitutional: Well developed, well nourished, no acute distress, non-toxic appearance. [] HENT: Normocephalic, atraumatic, bilateral external ears normal, oropharynx moist, no oral exudates, nose normal. [] Eyes: PERRLA, EOMI, conjunctiva normal, no discharge. [] Neck: Normal range of motion, no tenderness, supple, no stridor. [] Cardiovascular:Heart rate regular tachycardia rhythm, no murmur [] Lungs & Thorax: Bilateral upper breath sounds clear and lower diminished to auscultation [] Abdomen: Bowel sounds normal, soft, no tenderness, no masses, no pulsatile masses. [] Skin: Warm, dry, no erythema, no rash. [] Back: No tenderness, no CVA tenderness. [] Extremities: No tenderness, no cyanosis, no clubbing, ROM intact, no edema. [] Neurologic: Alert and oriented X 3, normal motor function, normal sensory function, no focal deficits noted. [] Psychologic: Affect normal, judgement normal, mood normal. [] Current Patient Data: Labs: Laboratory Tests Test 02/07/22 11:51 POC Urine HCG, Qualitative Hcg negative (Negative) EKG: EK and read by Dr. Watson as a sinus rhythm and no STEMI Radiology/Procedures: Radiology/Procedures: [] Impression: [facility] [address] [place], [place] [id number] IMAGING REPORT Signed PATIENT: ALEJANDRO AGUSTIN MACCOUNT: [id number] : 1990 LOCATION: ER AGE: 31 SEX: F EXAM STATUS: REG ER ORD. PHYSICIAN: SEJAL OESGUERA APRN REASON: fever, headache, cough PROCEDURE: PORTABLE CHEST 1V AP chest. HISTORY: Fever, headache, cough AP view was taken of the chest. Lungs are clear. Heart is normal in size. There is no effusion. IMPRESSION: 1. No acute chest disease. Electronically signed by: Puma Luther MD (02/07/2022 12:22 PM) [id number] DICTATED and SIGNED BY: PUMA LUTHER MD DATE: 02/07/22 122 Course & Med Decision Making: Course & Med Decision Making Pertinent Labs and Imaging studies reviewed. (See chart for details) See HPI. Alert and oriented x4. Ambulatory steady gait. Skin pink warm and dry. No respiratory distress or wheezing heard. Upper lung lobes are clear and lower lung lobes are diminished. Febrile. Last time she took any medication was Tylenol last night. Throat is pink without exudates or swelling. No nasal congestion. Speaks in full clear sentences. No nuchal rigidity. Patient is given Tylenol, Zofran, normal saline in the ED. Non septic appearing. After Tylenol, Zofran and normal saline patient still complains of a headache. She is now given Toradol. Chest x-ray showed no acute findings. After the breathing treatment and Solu-Medrol she states she is feeling better. 1420: Patient is given Toradol for her headache and after Toradol was given she states she is feeling better. Heart rate is 103. I went over patient findings and care plan with Dr Watson and he is in agreement. [] Patel Disclaimer: Patel Disclaimer: This electronic medical record was generated, in whole or in part, using a voice recognition dictation system. Departure Departure Impression: Primary Impression: Fever Qualified Codes: R50.9 - Fever, unspecified Additional Impressions: Asthma exacerbation Qualified Codes: J45.21 - Mild intermittent asthma with (acute) exacerbation Body aches Disposition: HOME / SELF CARE / HOMELESS Condition: STABLE Referrals: NO PCP (PCP) Patient Instructions: Asthma, Adult, Fever, Adult Additional Instructions: White count was slightly low which can be seen with a viral infection but you should follow-up with your primary care provider in the next couple weeks to be sure this gets better. Continue taking Tylenol or ibuprofen to help with pain and fever. If you get having severe shortness of breath and no relief with your inhaler return to the emergency room. Scripts Methylprednisolone (MEDROL) 4 Mg Tab.ds.pk 1 PKG PO UD, #1 PKG Prov: SEJAL OSEGUERA APRN 02/07/22 Albuterol Sulfate (PROAIR HFA INHALER) 8.5 Gm Hfa.aer.ad 2 PUFF IH PRN Q4-6HRS PRN for wheezing for 21 Days, #1 INHALER 0 Refills Prov: SEJAL OSEGUERA APRN 02/07/22 SEJAL OSEGUERA APRN February 07, 2022 12:07
[2022-02-07 12:20] LABS: BACTERIA,URINE FEW /HPF (0-FEW); RBC,URINE OCC /HPF (0-2)
--- NOTE | 2022-02-07 12:24 | RAD ---
AP chest. HISTORY: Fever, headache, cough AP view was taken of the chest. Lungs are clear. Heart is normal in size. There is no effusion. IMPRESSION: 1. No acute chest disease. Electronically signed by: Puma Luther MD (02/07/2022 12:22 PM) [id number]
[2022-02-07 12:28] LABS: INFLUENZA A PATIENT NEGATIVE (NEGATIVE); INFLUENZA B PATIENT NEGATIVE (NEGATIVE)
[2022-02-07 13:00] LABS: CALCIUM 8.8 mg/dL (8.5-10.1); GFR 79.3; POTASSIUM 3.3 mmol/L (3.5-5.1)
[2022-02-07] MEDS ORDERED: KETOROLAC 30 MG/ML VIAL. IVP ONE (13:00)
--- NOTE | 2022-02-07 13:00 | EKG ---
[facility] [address] [place] [address] Test Date: 2022-02-07 Test Time: 12:10:25 Pat Name: ALEJANDRO AGUSTIN Department: Room: Gender: F Typewriter Tester: : 1990 Requested By: SEJAL OSEGUERA Order Number: [id number] Reading MD: Measurements Intervals [place] Rate: 95 P: 70 VA: 160 QRS: 11 QRSD: 72 T: 51 QT: 322 QTc: 408 Interpretive Statements SINUS RHYTHM LEFT ATRIAL ABNORMALITY ABNORMAL ECG RI6.01 No previous ECG available for comparison
[2022-02-07 13:05] LABS: BASO % 1 % (0-3); EOS % 0 % (0-3); HEMATOCRIT 34.8 % (36.0-47.0); HEMOGLOBIN 11.4 g/dL (12.0-15.5); LYMPH # 0.9 x10^3/uL (1.0-4.8); LYMPH % 37 % (24-48); MEAN CORPUSCULAR HEMOGLOBIN 27 pg (25-35); MEAN CORPUSCULAR HGB CONC 33 g/dL (31-37); MEAN CORPUSCULAR VOLUME 82 fL (79-100); MONO # 0.4 x10^3/uL (0.0-1.1); MONO % 18 % (0-9); NEUT # 1.1 x10^3/uL (1.8-7.7); NEUT % 45 % (31-73); PLATELET COUNT 221 x10^3/uL (140-400); RED BLOOD COUNT 4.24 x10^6/uL (3.50-5.40); WHITE BLOOD COUNT 2.4 x10^3/uL (4.0-11.0)
[2022-02-07 13:06] LABS: ALBUMIN 3.8 g/dL (3.4-5.0); TOTAL BILIRUBIN 0.2 mg/dL (0.2-1.0); TOTAL PROTEIN 7.8 g/dL (6.4-8.2)
[2022-02-07 14:07] LABS: % LYMPHS 40 % (24-48); % MONOS 8 % (0-10); % SEGS 52 % (35-66); PLT ESTIMATE ADEQUATE (ADEQUATE)
[2022-02-07 14:08] LABS: ANISOCYTOSIS SLIGHT
[2022-02-07 14:16] VITALS: BP 109/62
[2022-02-07] MEDS ORDERED: ALBU2.5V8 IH (14:30)
[2022-02-07] MEDS ORDERED: METH4TAB2 PO (14:30)
[2022-02-07 14:40] LABS: BARBITURATES NEG (NEG); BENZODIAZEPINES NEG (NEG); CANNABINOIDS POS (NEG); COCAINE NEG (NEG); METHADONE NEG (NEG); OPIATES NEG (NEG); PHENCYCLIDINE NEG (NEG)
[2022-02-07 14:45] LABS: AMPHETAMINE/METHAMPHETAMINE NEG (NEG)
== END 2022-02-07 14:43 | disposition home or self-care (01) ==
LOC: ER 10:58
DX: J45.21 Mild intermittent asthma with (acute) exacerbation (principal); Z20.822 Contact with and (suspected) exposure to COVID-19; Z98.890 Other specified postprocedural states
CPT/HCPCS: 36415; 71045; 80053; 80307; 81001; 81025; 84484; 85007; 85025; 87428; 93005; 94640; 96361; 96374; 96375; 99285; J1885; J2930; J7030; J7613